=== PATIENT | female | born 1975 | race Caucasian/White ===

== ENCOUNTER → 2017-07-26 06:58 | Outpatient (CLI) | payer BC, SELFPAY ==
--- NOTE | 2017-07-26 07:06 | BI_ITS ---
MAMMOGRAPHY - BILATERAL SCREENING REASON FOR EXAM: Female, 41 years old. Routine annual screening examination. PERTINENT HISTORY: Non-contributory. TECHNIQUE: Digital bilateral breast fletcher (3D mammographic acquisition) in the CC and MLO projections. 2-D mediolateral oblique (MLO) and craniocaudad (CC) views of both breasts were obtained. CAD: Full Field Digital Mammography with Computer Added Detection was performed. COMPARISON: Comparison is made with prior study dated July 01, 2016 and May 06, 2015. FINDINGS: Breast Composition: There are scattered areas of fibroglandular density. There are no dominant masses or suspicious calcifications. No other significant abnormalities are identified. There has been no significant change since the prior study. BI/SCREENING MAMM (CAD), BILAT IMPRESSION: Stable bilateral screening mammogram. Yearly follow-up mammogram recommended. (A) ASSESSMENT CATEGORY: BIRADS Category 1: Negative. A letter regarding these results will be sent to the patient by the facility within 30 days. Approximately 10% of breast cancers are not detected by mammography. A normal mammogram should not delay biopsy of a clinically suspicious abnormality. [id number] Electronically Signed: Rubio Shaffer MD at 9:48 EDT Tel [phone], Service support ,
== END ==
PROVIDERS: Family Provider Family Medicine; PCP Family Medicine; Visit Provider Obstetrics & Gynecology
DX: Z12.31 Encounter for screening mammogram for malignant neoplasm of breast (principal)
CPT/HCPCS: 77063; 77067

== ENCOUNTER → 2017-10-06 13:41 | Outpatient (CLI) | payer BC, SELFPAY ==
[2017-10-12 11:49] LABS: HPV Reflexed? NOT INDICATED
== END ==
PROVIDERS: Visit Provider Obstetrics & Gynecology
DX: Z12.4 Encounter for screening for malignant neoplasm of cervix (principal)
CPT/HCPCS: 88175; G0145

== ENCOUNTER → 2018-11-29 14:58 | Outpatient (CLI) | payer BC, SELFPAY ==
[2018-12-26 15:38] LABS: HPV Reflexed? NOT INDICATED
== END ==
PROVIDERS: Visit Provider Advanced Practice Midwife
DX: Z12.4 Encounter for screening for malignant neoplasm of cervix (principal)
CPT/HCPCS: 87624; 88175; G0145

== ENCOUNTER → 2018-12-23 09:14 | Outpatient (CLI) | payer BC, SELFPAY ==
--- NOTE | 2018-12-23 09:17 | BI_ITS ---
MAMMOGRAPHY - BILATERAL SCREENING 3-D TOMOSYNTHESIS REASON FOR EXAM: Female, 42 years old. Screening PERTINENT HISTORY: No significant family history. BILATERAL DIGITAL MAMMOGRAM WITH TOMOSYNTHESIS: Mediolateraloblique and craniocaudal views demonstrate no evidence of dominant parenchymal masses. No cluster of microcalcification or architectural distortion is seen. No evidence of skin thickening. No significant change since 07/26/2017 Breast Density: There are scattered areas of fibroglandular density. CAD was used to assist in final assessment. IMPRESSION: NORMAL MAMMOGRAM BILATERALLY. FINAL ASSESSMENT: BIRAD 1 (NEGATIVE) YEARLY MAMMOGRAM RECOMMENDED Approximately 10% of breast cancers are not detected by mammography. A normal mammogram should not delay biopsy of a clinically suspicious abnormality. Electronically Signed: Vladislav Mansfield, at 7:40 EDT Tel , Service support , BI/SCREEN MAMM (CAD) W/MCKINLEY CHO
== END ==
PROVIDERS: Family Provider Family Medicine; PCP Family Medicine; Referring Provider Obstetrics & Gynecology; Visit Provider Obstetrics & Gynecology
DX: Z12.31 Encounter for screening mammogram for malignant neoplasm of breast (principal)
CPT/HCPCS: 77063; 77067

== ENCOUNTER → 2020-02-26 | Outpatient (CLI) | payer BC, SELFPAY ==
[2020-03-01 12:58] LABS: HPV Reflexed? NOT INDICATED
== END | disposition home or self-care (01) ==
LOC: LABSPEC 11:24
PROVIDERS: PCP Family Medicine; Visit Provider Student in an Organized Health Care Education/Training Program
DX: Z12.4 Encounter for screening for malignant neoplasm of cervix (principal)
CPT/HCPCS: 88175; G0145

== ENCOUNTER → 2020-03-20 06:56 | Outpatient (CLI) | payer BC, SELFPAY ==
--- NOTE | 2020-03-20 07:06 | BI_ITS ---
MAMMOGRAPHY - BILATERAL SCREENING REASON FOR EXAM: Female, 44 years old. Routine annual screening examination. PERTINENT HISTORY: Non-contributory. TECHNIQUE: Digital bilateral breast mckinley (3D mammographic acquisition) in the CC and MLO projections. 2-D mediolateral oblique (MLO) and craniocaudad (CC) views of both breasts were obtained. CAD: Full Field Digital Mammography with Computer Added Detection was performed. COMPARISON: Comparison is made with prior examination of 12/23/2018 and 07/26/2017. FINDINGS: Breast Composition: There are scattered areas of fibroglandular density. There are no dominant masses or suspicious calcifications. Stable small benign appearing bilateral axillary lymph nodes. No other significant abnormalities are identified. There has been no significant change since the prior study. BI/SCREEN MAMM (CAD) W/MCKINLEY BILAT IMPRESSION: Stable bilateral screening mammogram. Yearly follow-up mammogram recommended. (A) ASSESSMENT CATEGORY: BIRADS Category 2: Benign. A letter regarding these results will be sent to the patient by the facility within 30 days. Approximately 10% of breast cancers are not detected by mammography. A normal mammogram should not delay biopsy of a clinically suspicious abnormality. [id number] Electronically Signed: Rubio Shaffer, at 10:13 EST , Service support ,
== END ==
PROVIDERS: PCP Family Medicine; Referring Provider Student in an Organized Health Care Education/Training Program; Visit Provider Student in an Organized Health Care Education/Training Program
DX: Z12.31 Encounter for screening mammogram for malignant neoplasm of breast (principal)
CPT/HCPCS: 77063; 77067

== ENCOUNTER → 2020-04-08 | Outpatient (CLI) | payer BC, SELFPAY ==
--- NOTE | 2020-04-08 | CER_PTH ---
PATIENT: JOHNSON RODRIGUEZ [id number] AGE/SX: 44/F ROOM: RE04/08/[address]: Dr. Kandi Lakhani DO : 1975 BED: DIS: 04/08/2020 SPEC #: [id number] RECD: 04/08/20 16:10 STATUS: KOKI BRUCE #: [id number] MARGARETTE: 04/08/20 00:[address]: Kandi Lakhani DEPT: SURGICAL PATHOLOGY RECD BY: Pete Elizabeth ENTERED: 04/09/20 10:53 SP TYPE: CERV OTHR DR: Dr. Juana Dubon DO Tissues: A - Uterine cervix, NOS B - Endocervical Procedures: Surgery Specimen Level IV HEADER OPERATION: Colposcopy PRE-OP DIAGNOSIS: LSIL TISSUE SUBMITTED: A - Cervical biopsy 6 o'clock, B - ECC MICROSCOPIC DIAGNOSIS A. Cervix, 6 o'clock, biopsy: Negative for dysplasia. Mild acute and chronic inflammation. B. ECC: Fragments of benign endocervical epithelium, blood and mucous, negative for dysplasia. CULLEN:renan 04/10/2020 COMMENT Correlation with clinical, colposcopy findings and appropriate follow up are necessary. MICROSCOPIC DESCRIPTION Slides are reviewed. GROSS DESCRIPTION A - Received in fixative is one container labeled with the patient's name and designated 6 o'clock cervix. The specimen consists of one irregular fragment of light morel soft tissue that measures 0.3 x 0.3 x 0.1 cm. The specimen is totally submitted in one cassette. B - Received in fixative is one container labeled with the patient's name and designated endocervix. The specimen consists of light morel mucoid material aggregating to 2 x 1 x <0.1 cm. The specimen is totally submitted in one cassette. / AM:renan 04/09/20 TC:3 CPT: 67489 x2
== END | disposition home or self-care (01) ==
LOC: LABSPEC 15:50
PROVIDERS: PCP Family Medicine; Visit Provider Student in an Organized Health Care Education/Training Program
DX: N72 Inflammatory disease of cervix uteri (principal)
CPT/HCPCS: 88305

== ENCOUNTER 2021-04-27 07:26 | Outpatient (CLI) | payer BC, SELFPAY ==
--- NOTE | 2021-04-27 07:28 | BI_ITS ---
MAMMOGRAPHY - BILATERAL SCREENING REASON FOR EXAM: Female, 45 years old. Routine annual screening examination. PERTINENT HISTORY: Non-contributory. TECHNIQUE: Digital bilateral breast mckinley (3D mammographic acquisition) in the CC and MLO projections. 2-D mediolateral oblique (MLO) and craniocaudad (CC) views of both breasts were obtained. CAD: Full Field Digital Mammography with Computer Added Detection was performed. COMPARISON: Comparison is made with prior study dated 03/20/2020 and 12/23/2018. FINDINGS: Breast Composition: There are scattered areas of fibroglandular density. There are no dominant masses or suspicious calcifications. Stable small benign-appearing bilateral axillary lymph nodes. No other significant abnormalities are identified. There has been no significant change since the prior study. BI/SCRN MAMM (CAD)W/MCKINLEY BILAT IMPRESSION: Stable bilateral screening mammogram. Yearly follow-up mammogram recommended. (A) ASSESSMENT CATEGORY: BIRADS Category 2: Benign. A letter regarding these results will be sent to the patient by the facility within 30 days. Approximately 10% of breast cancers are not detected by mammography. A normal mammogram should not delay biopsy of a clinically suspicious abnormality. [id number] Electronically Signed: Rubio Shaffer MD at 11:22 EST ,
== END 2021-04-27 23:59 | disposition home or self-care (01) ==
LOC: OPBI 07:26
PROVIDERS: PCP Family Medicine; Referring Provider Student in an Organized Health Care Education/Training Program; Visit Provider Student in an Organized Health Care Education/Training Program
DX: Z12.31 Encounter for screening mammogram for malignant neoplasm of breast (principal)
CPT/HCPCS: 77063; 77067

== ENCOUNTER 2021-06-02 12:07 | Outpatient (CLI) | payer BC, SELFPAY ==
[2021-06-09 13:59] LABS: HPV APTIMA, High Risk Negative (Negative)
== END 2021-06-02 23:59 | disposition home or self-care (01) ==
LOC: LABSPEC 12:09
PROVIDERS: PCP Family Medicine; Visit Provider Student in an Organized Health Care Education/Training Program
DX: Z12.4 Encounter for screening for malignant neoplasm of cervix (principal)
CPT/HCPCS: 87624; 88175; G0145

== ENCOUNTER → 2022-06-29 | Outpatient (CLI) | payer BC, SELFPAY ==
[2022-07-07 10:08] LABS: HPV APTIMA, High Risk Negative (Negative)
== END | disposition home or self-care (01) ==
LOC: LABSPEC 12:05
PROVIDERS: PCP Family Medicine; Visit Provider Student in an Organized Health Care Education/Training Program
DX: Z12.4 Encounter for screening for malignant neoplasm of cervix (principal)
CPT/HCPCS: 87624; 88175; G0145

== ENCOUNTER → 2022-07-08 | Outpatient (CLI) | payer BC, SELFPAY ==
--- NOTE | 2022-07-08 07:56 | BI_ITS ---
MAMMOGRAPHY - BILATERAL SCREENING REASON FOR EXAM: Female, 46 years old. Routine annual screening examination. PERTINENT HISTORY: Non-contributory. TECHNIQUE: Digital bilateral breast mckinley (3D mammographic acquisition) in the CC and MLO projections. 2-D mediolateral oblique (MLO) and craniocaudad (CC) views of both breasts were obtained. CAD: Full Field Digital Mammography with Computer Added Detection was performed. COMPARISON: Comparison is made with prior examination from February 24, 2022 and March 20, 2020. FINDINGS: Breast Composition: There are scattered areas of fibroglandular density. There are no dominant masses or suspicious calcifications. Stable small benign-appearing bilateral axillary lymph nodes. No other significant abnormalities are identified. There has been no significant change since the prior study. BI/SCRN MAMM (CAD)W/MCKINLEY BILAT IMPRESSION: Stable bilateral screening mammogram. Yearly follow-up mammogram recommended. (A) ASSESSMENT CATEGORY: BIRADS Category 2: Benign. A letter regarding these results will be sent to the patient by the facility within 30 days. Approximately 10% of breast cancers are not detected by mammography. A normal mammogram should not delay biopsy of a clinically suspicious abnormality. [id number] Electronically Signed: Rubio Shaffer MD at 11:07 EDT ,
== END | disposition home or self-care (01) ==
LOC: OPBI 07:55
PROVIDERS: PCP Family Medicine; Referring Provider Student in an Organized Health Care Education/Training Program; Visit Provider Student in an Organized Health Care Education/Training Program
DX: Z12.31 Encounter for screening mammogram for malignant neoplasm of breast (principal)
CPT/HCPCS: 77063; 77067

== ENCOUNTER 2023-01-06 06:39 | Day surgery (SDC) | payer BC, SELFPAY ==
[2023-01-06 07:16] VITALS: BP 106/71; PULSE 98; RESP 18; TEMP 35.8; O2SAT 98; BMI 33.3
[2023-01-06] MEDS: Lactated Ringers 1,000 ML 15 ML IV (07:21)
--- NOTE | 2023-01-06 07:23 | HP.PCM_ITS ---
HPI - General General Date of Admission: 01/06/23 Date of Service: 01/06/23 Chief Complaint: Screening colonoscopy HPI Narrative JOHNSON RODRIGUEZ, is a 47 F who presents today for screening colonoscopy. She has never had a colonoscopy in the past. She is not having abdominal pain. Does not have any nausea, vomiting or diarrhea. She does not have any chest pain or shortness of breath. Overall she is in very good health. [facility] Medical History (Updated 01/03/23 @ 17:30 by Rhona Huggins) Alcohol use Anxiety Depression High cholesterol History of broken nose Migraine headache Non-smoker Restless legs Seasonal allergies Wears contact lenses Home Medications escitalopram oxalate 5 mg tablet (Lexapro) 20 mg PO DAILY 03/09/22 [History Last Taken Unknown] cetirizine 10 mg tablet (Zyrtec) 10 mg PO DAILY 10/28/22 [History Last Taken Unknown] collagen 500 mg PO DAILY 01/03/23 [History Last Taken Unknown] Allergy/AdvReac Type Severity Reaction Status Date / Time amoxicillin [From Augmentin] Allergy Hives Verified 01/03/23 17:19 clavulanic acid Allergy Hives Verified 01/03/23 17:19 [From Augmentin] Social History (Updated 10/28/22 @ 14:48 by Latonia Ledesma) household members: spouse current occupational status: employed Smoking Status: Never smoker ROS Review of Systems ROS Unobtainable: other Constitutional Constitutional: Denies fatigue, fever(s), poor appetite, weight gain or weight loss ENT HEENT: Denies mouth lesions Cardiovascular Cardiovascular: Denies abdominal bloating, abdominal edema or abdominal pain Respiratory/Chest Respiratory/Chest: Denies change in mental status, change in phlegm color, chest congestion or chest tightness Gastrointestinal Gastrointestinal: Denies belching, bloating, change in bowel habits, change in stool character, chewing difficulty, coffee ground emesis, constipation, c ramping, diarrhea, dyspepsia, dysphagia, early satiety, excessive flatus, fecal incontinence, heartburn, hematemesis, hematochezia, hemorrhoids, loose stools, melena, nausea, odynophagia, rectal bleeding, tenesmus, vomiting or weight changes Genitourinary Genitourinary: Denies abdominal discomfort, burning urination or itching Musculoskeletal Musculoskeletal: Reports as per HPI; Denies muscle weakness or myalgias Integumentary Integumentary: Denies jaundice Neurologic Neurologic: Denies lack of coordination or weakness Psychiatric Psychiatric: Denies confusion, depression, memory loss, mood swings, paranoia or suicidal ideation Endocrine Endocrinology: Denies systems reviewed and no addt'l complaints, except as documented Hematologic/Lymphatic Hematologic/Lymphatic: Denies anemia, easy bleeding, easy bruising or lymphadenopathy Allergic/Immunologic Allergic/Immunologic: Denies systems reviewed and no addt'l complaints, except as documented Vital Signs Vital Signs Vital Signs: 01/06/23 07:16 01/06/23 07:16 Temperature 96.4 F L Temperature Source Temporal Pulse Rate 98 Respiratory Rate 18 Respiratory Pattern Normal Blood Pressure 106/71 Blood Pressure Mean 82 Blood Pressure Source Monitor Blood Pressure Position Semi-Fowlers Blood Pressure Location Right Arm Pulse Ox 98 Oxygen Delivery Method Room Air Weight Weight: 182 lb Body Mass Index (BMI) 33.3 Physical Exam Const alert General Appearance: cooperative Orientation / Consciousness: oriented to person HEENT hearing grossly normal bilaterally Head and Scalp: normal to inspection Face and Sinus: face symmetric Nose: external nose normal Mouth: oral and palatal mucosa normal Eyes conjunctivae normal General Eye: normal appearance of both eyes Neck full ROM General: normal visual inspection Lymph Lymphatic: no lymphadenopathy noted Chest inspection of chest normal and palpation of chest normal Chest: symmetrical chest wall rise Resp normal respiratory effort Effort and Inspection: able to speak in complete sentences Cardio regular rate GI non-distended Percussion: normal to percussion Rectal Exam: deferred Neuro Speech: speech normal Gait (Neuro): normal gait Assessment & Plan Assessment/Plan (1) Encounter for screening for malignant neoplasm of colon: PLAN: She was explained alternatives, risk, benefits include not withstanding bleeding, infection, sepsis, perforation, need for emergent surgery . She will have an ASA of 2.
[2023-01-06 07:27] LABS: Internal QC Validated? YES +Cl - CLEAR BKGD; Pregnancy, Serum, hCG Quali. NEGATIVE Negative; Record Kit Lot#, Serum Preg. HCG0000667200
--- NOTE | 2023-01-06 07:45 | COLBX_PTH ---
PATIENT: JOHNSON RODRIGUEZ LOC: [facility] U#:[id number] AGE/SX: 47/F ROOM: RE01/06/[address]: Dr. Narciso Garcia DO : 1975 BED: DIS: 01/06/2023 SPEC #: [id number] RECD: 01/06/23 09:44 STATUS: KOKI RECalvin #: [id number] MARGARETTE: 01/06/23 07:[address]: Narciso Garcia DEPT: SURGICAL PATHOLOGY RECD BY: Genoveva Wynne ENTERED: 01/06/23 11:49 SP TYPE: COLON BX OTHR DR: Dr. Juana Dubon DO Tissues: Sigmoid colon biopsy Procedures: Surgery Specimen Level IV HEADER OPERATION: Colonoscopy wit biopsy - open access PRE-OP DIAGNOSIS: Screening TISSUE SUBMITTED: Sigmoid polyp biopsy MICROSCOPIC DIAGNOSIS Sigmoid polyp, biopsy: Hyperplastic polyp. CULLEN:renan 01/07/2023 MICROSCOPIC DESCRIPTION Slides are reviewed. GROSS DESCRIPTION Received in fixative is one container labeled with the patient's name and designated sigmoid polyp biopsy. The specimen consists of one irregular fragment of light morel soft tissue that measures 0.3 x 0.2 x 0.1 cm. The specimen is totally submitted in one cassette. / AM:renan 01/06/2023 TC:1 CPT: 84661
[2023-01-06 08:25] VITALS: BP 106/71; BP 142/117; PULSE 86; RESP 16; TEMP 36.2; O2SAT 97
--- NOTE | 2023-01-06 08:26 | OP.COLON_ITS ---
Patient Name: Ana Carrasco Procedure Date: 01/06/2023 8:00 AM Date of : 1975 Age: 47 Procedure: Colonoscopy Indications: Screening for colorectal malignant neoplasm Providers: Narciso Garcia DO Referring MD: Juana Joshua Do Medicines: Monitored Anesthesia Care Patient Profile: This is a 47 year old female. Refer to note in patient chart for documentation of history and physical. Last Colonoscopy: none. The patient's first colonoscopy is today. Complications: No immediate complications. Procedure: Pre-Anesthesia Assessment: - Prior to the procedure, a History and Physical was performed, and patient medications and allergies were reviewed. The patient is competent. The risks and benefits of the procedure and the sedation options and risks were discussed with the patient. All questions were answered and informed consent was obtained. Patient identification and proposed procedure were verified by the physician in the pre-procedure area. Mental Status Examination: alert and oriented. Airway Examination: normal oropharyngeal airway and neck mobility. Respiratory Examination: clear to auscultation. CV Examination: normal. Prophylactic Antibiotics: The patient does not require prophylactic antibiotics. Prior Anticoagulants: The patient has taken no anticoagulant or antiplatelet agents. ASA Grade Assessment: II - A patient with mild systemic disease. After reviewing the risks and benefits, the patient was deemed in satisfactory condition to undergo the procedure. The anesthesia plan was to use monitored anesthesia care (MAC). Immediately prior to administration of medications, the patient was re-assessed for adequacy to receive sedatives. The heart rate, respiratory rate, oxygen saturations, blood pressure, adequacy of pulmonary ventilation, and response to care were monitored throughout the procedure. The physical status of the patient was re-assessed after the procedure. After I obtained informed consent, the scope was passed under direct vision. Throughout the procedure, the patient's blood pressure, pulse, and oxygen saturations were monitored continuously. The Colonoscope was introduced through the anus and advanced to the cecum, identified by appendiceal orifice and ileocecal valve. The colonoscopy was performed without difficulty. The patient tolerated the procedure well. The quality of the bowel preparation was good. The ileocecal valve, appendiceal orifice, and rectum were photographed. Scope In: 8:09:02 AM Scope Withdrawal Time 0 hours 7 minutes 37 seconds Scope Out: 8:19:37 AM Total Procedure Duration Time 0 hours 10 minutes 35 seconds Findings: The perianal and digital rectal examinations were normal. A few small-mouthed diverticula were found in the sigmoid colon. A 5 mm polyp was found in the sigmoid colon. The polyp was sessile. The polyp was removed with a cold snare. Resection and retrieval were complete. Verification of patient identification for the specimen was done. Estimated blood loss was minimal. Impression: - Diverticulosis in the sigmoid colon. - One 5 mm polyp in the sigmoid colon, removed with a cold snare. Resected and retrieved. Recommendation: - Repeat colonoscopy in 5 years for surveillance. - Continue present medications. Procedure Code(s): --- Professional --- 32647, Colonoscopy, flexible; with removal of tumor(s), polyp(s), or other lesion(s) by snare technique CPT copyright 2021 [employer]. All rights reserved. The codes documented in this report are preliminary and upon flasher adjuster review may be revised to meet current compliance requirements. Narciso Garcia DO 01/06/2023 8:25:53 AM This report has been signed electronically. Number of Addenda: 0 Note Initiated On: 01/06/2023 8:00 AM
--- NOTE | 2023-01-06 08:26 | OP.CCLET_ITS ---
01/06/2023 Juana Joshua Do Re : Colonoscopy procedure for Ana Carrasco [place] This procedure was performed on December. My impressions and recommendations are as follows: Impressions : - Diverticulosis in the sigmoid colon. - One 5 mm polyp in the sigmoid colon, removed with a cold snare. Resected and retrieved. Recommendations : - Repeat colonoscopy in 5 years for surveillance. - Continue present medications. My findings are described in the full procedure note, which is enclosed. If I can be of further assistance, please feel free to contact me at . Sincerely, Narciso Garcia, 01/06/2023 8:25:53 AM This report has been signed electronically.
[2023-01-06 08:30] VITALS: BP 100/65; BP 106/71; PULSE 81; RESP 18; O2SAT 97
[2023-01-06 08:35] VITALS: BP 106/71; BP 94/66; PULSE 73; RESP 18; O2SAT 98
[2023-01-06 08:42] VITALS: BP 101/60; BP 106/71; PULSE 74; RESP 16; TEMP 36.9; O2SAT 98
[2023-01-06 09:03] VITALS: BP 106/71
== END 2023-01-06 09:12 | disposition home or self-care (01) ==
LOC: EN 06:40 → AC 06:40
PROVIDERS: Anesthesiology; PCP Family Medicine; Referring Provider Family Medicine; Visit Provider Internal Medicine Gastroenterology
PROC: 0DJD8ZZ Inspection of Lower Intestinal Tract, Via Natural or Artificial Opening Endoscopic (ICD-10-PCS; CPT 45378; principal; 2023-01-06 07:40)
DX: Z12.11 Encounter for screening for malignant neoplasm of colon (principal); K57.30 Diverticulosis of large intestine without perforation or abscess without bleeding; K63.5 Polyp of colon; E78.00 Pure hypercholesterolemia, unspecified
CPT/HCPCS: 45385; 84703; 88305; J7120

== ENCOUNTER → 2023-11-28 | Outpatient (CLI) | payer BC, SELFPAY ==
--- NOTE | 2023-11-28 08:01 | BI_ITS ---
MAMMOGRAPHY - BILATERAL SCREENING 3-D TOMOSYNTHESIS REASON FOR EXAM: Female, 47 years old. screening mammogram PERTINENT HISTORY: No significant family history. TECHNIQUE: 2-D mammograms and 3-D Tomosynthesis of the breast (s) were performed. CAD was performed. COMPARISON: 07/08/2022 FINDINGS: The breast composition is composed of scattered fibroglandular density. Scattered benign calcifications are seen. No dense spiculated masses or suspicious microcalcifications are identified. No architectural distortion is identified. There is no skin thickening or retraction. There has been no significant change since the prior study. BI/SCRN MAMM (CAD)W/MCKINLEY BILAT IMPRESSION: No mammographic signs of malignancy. Routine yearly mammograms recommended. ASSESSMENT CATEGORY: BIRADS Category 1: Negative. A letter regarding these results will be sent to the patient by the facility within 30 days. FOLLOW UP RECOMMENDATION: Yearly follow up mammogram recommended. (A) Approximately 10% of breast cancers are not detected by mammography. A normal mammogram should not delay biopsy of a clinically suspicious abnormality. Electronically Signed: Gamal Dixon MD at 14:56 EDT ,
== END | disposition home or self-care (01) ==
LOC: OPBI 08:01
PROVIDERS: PCP Family Medicine; Referring Provider Obstetrics & Gynecology; Visit Provider Obstetrics & Gynecology
DX: Z12.31 Encounter for screening mammogram for malignant neoplasm of breast (principal)
CPT/HCPCS: 77063; 77067

== ENCOUNTER → 2024-11-26 | Outpatient (CLI) | payer BC, SELFPAY ==
--- NOTE | 2024-11-26 16:25 | US_ITS ---
PROCEDURE: PELVIC W/ TRANSVAGINAL REASON FOR EXAM: VAGINAL BLEEDING TECHNIQUE: Procedure Code: [id number] Modality: US Procedure: PELVIC W/ TRANSVAGINAL COMPARISON: None FINDINGS: LMP: November 11, 2024. Measurements: Uterus: 8.4 cm x 5.4 cm x 4.5 cm with a volume of 105.1 mL Endometrial Thickness: 5 mm. It is fluid-filled. Questionable polyp within the endometrium measuring 7 mm x 8 mm x 6 mm. Right Ovary: 3.5 cm x 2.4 cm x 2.1 cm with a volume of 8.53 mL. Left Ovary: 2.2 cm x 2.1 cm x 2 cm with a volume of 6.27 mL. TRANSABDOMINAL: Uterus: There is an 8 mm x 8 mm x 4 mm fundal fibroid. Endometrium: Fluid-filled. Findings suggestive of a 7 mm x 8 mm x 6 mm polyp. Right ovary: A dominant follicle is seen within the right ovary measuring 1.5 cm x 1.6 cm 1.5 cm. Left ovary: Normal size and echotexture. Other: No large pelvic mass identified. Transvaginal sonography was performed as transabdominal imaging did not explain the patient's presenting symptoms. TRANSVAGINAL: Uterus: Anteverted. Small fundal fibroid. Endometrium: Fluid-filled endometrium measuring 5 mm. Findings suggestive of a 7 mm x 8 mm x 6 mm polyp. Right ovary: Small follicle. Left ovary: Normal size and echotexture. Other adnexal findings: None. Cul-de-sac: No free intraperitoneal fluid identified. Tenderness: No tenderness US/Pelvic w/ Transvaginal IMPRESSION: Small uterine fibroid. Findings suggestive of a 7 mm x 8 mm x 6 mm endometrial polyp. Reading Location: [id number]
== END | disposition home or self-care (01) ==
LOC: US 16:22
PROVIDERS: PCP Family Medicine; Referring Provider Obstetrics & Gynecology; Visit Provider Obstetrics & Gynecology
DX: N93.9 Abnormal uterine and vaginal bleeding, unspecified (principal)
CPT/HCPCS: 76830; 76856

== ENCOUNTER → 2024-12-05 | Outpatient (CLI) | payer BC, SELFPAY ==
[2024-12-05 09:31] LABS: Hematocrit 37.7 % (37-47); Hemoglobin 12.3 g/dL (12.0-15.0); Immature Granulocytes Count 0.030 X10^3/uL (0.0-0.0); Mean Corp Hgb Conc 32.6 g/dL (32-36); Mean Corpuscular Volume 89.1 fL (81-99); Mean Platelet Vol. 8.8 fl (6.2-12.0); NRBC Flagged by Analyzer 0 % (0-5); Platelet Count 345 K/mm3 (150-450); RBC Distribution Width CV 13.3 % (11.6-14.6); RBC Distribution Width SD 43.7 fl (35.1-43.9); Red Blood Count 4.23 M/mm3 (4.2-5.4); White Blood Count 8.4 K/mm3 (4.4-11.0)
--- OUTSIDE RECORDS SUMMARY | 2024-12-05 09:39 | XMS RPT_ITS | CCD ---
Author Organization [facility] CliniSyma Care Team Providers Care Family Preservation Officer Name Role Phone BLOSSOM MONCADA DO Primary Care Physician Dr. Bolssom Moncada Primary Care Provider Dr. Blossom Moncada Referring Provider [phone] GIL Nguyen Attending Provider Dr. Blossom Moncada Primary Care Provider Latonia Ledesma Attending Provider Unavailable Dr. Blossom Moncada Referring Provider [phone] Dr. Narciso Garcia Attending Provider Dr. Narciso Garcia Other Provider [phone] BLOSSOM MONCADA DO Attending Unavailable BLOSSOM MONCADA DO Primary Care Unavailable BLOSSOM MONCADA DO Attending Unavailable BLOSSOM MONCADA DO Primary Care Unavailable BLOSSOM MONCADA DO Attending Unavailable BLOSSOM MONCADA DO Primary Care Unavailable BLOSSOM MONCADA DO Attending Unavailable BLOSSOM MONCADA DO Primary Care Unavailable BLOSSOM MONCADA DO Attending Unavailable BLOSSOM MONCADA DO Primary Care Unavailable BLOSSOM MONCADA DO Primary Care Physician [phone] Blossom Moncada DO Primary Care Provider BLOSSOM MONCADA Referring UnavailBLOSSOM Abarca Primary Care UnavailDr. Blossom Abarca DO Primary Care Provider Shelly HERRERA, Dr. North Attending Provider Dr. Mary Anne Bravo MD Referring Provider Mary Anne Bravo Attending Unavailable Coral, Blossom Primary Care Unavailable Coral, Blossom Referring Unavailable Mary Anne Bravo Attending Unavailable Mary Anne Bravo Referring Unavailable Coral, Blossom Primary Care Unavailable CORAL DO, BLOSSOM Primary Care Unavailable CORAL DO, BLOSSOM Attending Unavailable CORAL DO, BLOSSOM Attending Unavailable CORAL DO, BLOSSOM Primary Care Unavailable CORAL DO, BLOSSOM Attending Unavailable CORAL DO, BLOSSOM Primary Care Unavailable Allergies Allergy Classification Reported Allergen(s) Allergy Type Date of Onset Reaction(s) Facility (4 sources) Amoxicillin / Clavulanate; Translations: [amoxicillin-cl avulanate] Drug Allergy Swelling (morphologic abnormality), Itching (finding), Weal (disorder) [facility] [place] (4 sources) Amoxicillin Drug Allergy 2 Other, [facility] (4 sources) Clavulanate Drug Allergy 2 Other, [facility] (1 source) ALLERGIES NOT ON FILE; Translations: [ALLERGIES NOT ON FILE] Propensity to adverse reactions (disorder) [facility] 2 Repository (1 source) Amoxicillin Drug Allergy 4 [facility] Repository (1 source) Clavulanate Drug Allergy 4 [facility] Repository Medications Current Medications Medication Drug Class(es) Dates Sig (Normalized) Sig (Original) ARIPiprazole 2 mg oral tablet (1 source) Atypical Antipsychotic Start: 05-25-2024 Abilify 2 mg oral tablet Dose : 2 mg = 1 tab(s), Oral, qDay, # 90 tab(s), 1 Refill(s), [facility]: [id number], Mood swings Recurrent major depression, 162, cm, 05/25/24 8:12:00 EST, Height, kg, 05/25/24 8:06:00 EST, Dosing Weight Start Date: 05/25/24 Status: Ordered Medication Dispense Status: Completed Quantity: 90.0 Unit: tab(s) Total Allowed Fills: 2 Fills Dispensed: 0 Indications: Major depressive disorder, recurrent, unspecified; Emotional lability; Ascorbic Acid (1 source) Vitamin C Start: 04-16-2022 Vitamin C qDay, 0 Refill(s) Start Date: 04/16/22 Status: Ordered Calcium, Magnesium and Zinc oral tablet (1 source) Start: 03-28-2024 take 1 tablet by mouth once daily Calcium, Magnesium and Zinc oral tablet tab(s), Oral, qDay, 0 Refill(s) Start Date: 03/28/24 Status: Ordered Medication Dispense Status: Completed Total Allowed Fills: 1 Fills Dispensed: 0 cetirizine hydrochloride 10 mg oral tablet (4 sources) Histamine-1 Receptor Antagonist Start: 08-27-2022 cetirizine 10 mg oral tablet Dose : 10 mg = 1 tab(s), Oral, qDay, # 30 tab(s), 0 Refill(s) Start Date: 08/27/22 Status: Ordered Medication Dispense Status: Completed Quantity: 30.0 Unit: tab(s) Total Allowed Fills: 1 Fills Dispensed: 0 escitalopram 20 mg oral tablet (8 sources) Serotonin Reuptake Inhibitor Start: 05-25-2024 Lexapro 20 mg oral tablet Dose : 20 mg = 1 tab(s), Oral, qDay, # 90 tab(s), 3 Refill(s), [facility]acy: [facility] #[id number], Recurrent major depression Anxiety, 162, cm, 05/25/24 8:12:00 EST, Height, kg, 05/25/24 8:06:00 EST, Dosing Weight Start Date: 05/25/24 Status: Ordered Medication Dispense Status: Completed Quantity: 90.0 Unit: tab(s) Total Allowed Fills: 4 Fills Dispensed: 0 Indications: Major depressive disorder, recurrent, unspecified; Anxiety disorder, unspecified; Start: 02-23-2023 Lexapro 20 mg oral tablet Dose : 20 mg = 1 tab(s), Oral, qDay, # 90 tab(s), 3 Refill(s), Pharmacy: [facility] #[id number], Recurrent major depression Anxiety, 161.5, cm, 02/23/23 8:11:00 EST, Height, kg, 02/23/23 8:11:00 EST, Dosing Weight Start Date: 02/23/23 Status: Ordered Start: 04-16-2022 Lexapro 20 mg oral tablet Dose : 20 mg = 1 tab(s), Oral, qDay, # 90 tab(s), 3 Refill(s), Pharmacy: [facility] #[id number], Anxiety Depression, 161.5, cm, 04/16/22 8:24:00 EST, Height, kg, 04/16/22 8:24:00 EST, Dosing Weight Start Date: 04/16/22 Status: Ordered Start: 03-09-2022 take [address] [facility] once daily Escitalopram Oxalate (Lexapro) 5 mg tablet Active 20 mg PO DAILY March 09, 2022 1:00am Start: 03-09-2022 [facility] Escitalopram Oxalate (Lexapro) 5 mg tablet Active 5 MG PO DAILY March 09, 2022 1:00am Start: 09-09-2021 Lexapro 20 mg oral tablet Dose : 20 mg = 1 tab(s), Oral, qDay, # 30 tab(s), 5 Refill(s), [id number] [facility], Anxiety Depression, 160, cm, 09/09/21 9:04:00 EDT, Height, kg, 09/09/21 9:04:00 EDT, Dosing Weight Start Date: 09/09/21 Status: Ordered ibuprofen 200 mg oral tablet (4 sources) Nonsteroidal Anti-inflammatory Drug Start: 09-09-2021 ibuprofen 200 mg oral tablet Dose : 400 mg = 2 tab(s), Oral, q6hr, PRN pain or fever, 0 Refill(s) Start Date: 09/09/21 Status: Ordered Medication Dispense Status: Completed Total Allowed Fills: 1 Fills Dispensed: 0 Lactobacillus Combination No.4 (Probiotic) 3 billion cell capsule (1 source) Start: 11-14-2023 take 3 capsules by mouth once daily Lactobacillus Combination No.4 (Probiotic) 3 billion cell capsule Active 3000 NMA PO DAILY November 14, 2023 12:00am administer with a meal loratadine 10 mg oral tablet (2 sources) Start: 10-14-2020 take 1 mg by mouth once daily loratadine 10 mg oral tablet mg = tab(s), Oral, qDay, 0 Refill(s) Start Date: 10/14/20 Status: Ordered Mecobalamin (Vitamin B12) 1,000 mcg lozenge (1 source) Start: 11-14-2023 take 1000 ug by mouth once daily Mecobalamin (Vitamin B12) 1,000 mcg lozenge Active 1000 ug PO DAILY November 14, 2023 12:00am allow to dissolve in mouth OR may chew lightly before swallowing Misc Medication (2 sources) Start: 03-28-2024 Mis Medication Collogen 500mg, 0 Refill(s), 85.6 Start Date: 03/28/24 Status: Ordered Medication Dispense Status: Completed Total Allowed Fills: 1 Fills Dispensed: 0 Start: 02-24-2024 [facility] [facility] digestive vitamin to help w/ gluten and dairy digestion., 0 Refill(s), 83.6 Start Date: 02/24/24 Status: Ordered Medication Dispense Status: Completed Total Allowed Fills: 1 Fills Dispensed: 0 Multivitamin preparation (1 source) Start: 02-24-2024 take 1 tablet by mouth once daily Multivitamin Dose = 1 tab(s), Oral, Daily, Sil pack: Fish oil, calcium plus, cranberry, 0 Refill(s) Start Date: 02/24/24 Status: Ordered Medication Dispense Status: Completed Total Allowed Fills: 1 Fills Dispensed: 0 Probiotic (4 sources) Start: 09-09-2023 Probiotic 0 Re fill(s) Start Date: 09/09/23 Status: Ordered Medication Dispense Status: Completed Total Allowed Fills: 1 Fills Dispensed: 0 Start: 09-09-2023 Probiotic 0 Re fill(s) Start Date: 09/09/23 Status: Ordered Start: 05-07-2021 Probiotic qDay , 0 Refill(s) Start Date: 05/07/21 Status: Ordered rosuvastatin calcium 10 mg oral tablet (3 sources) HMG-CoA Reductase Inhibitor Start: 09-09-2023 rosuvastatin 10 mg o ral tablet Dose : 10 mg = 1 tab(s), Oral, qDay, # 90 tab(s), 1 Refill(s), [id number], Hyperlipidemia, 162, cm, 05/25/24 8:12:00 EST, Height, kg, 05/25/24 8:06:00 EST, Dosing Weight Start Date: 05/25/24 Status: Ordered Medication Dispense Status: Completed Quantity: 90.0 Unit: tab(s) Total Allowed Fills: 2 Fills Dispensed: 0 Indications: Hyperlipidemia, unspecified; vitamin B12 (2 sources) Vitamin B12 Start: 07-06-2023 Vitamin B12 0 Refill(s) Start Date: 07/06/23 Status: Ordered Medication Dispense Status: Completed Total Allowed Fills: 1 Fills Dispensed: 0 Start: 07-06-2023 Vitamin B12 0 Refill(s) Start Date: 07/06/23 Status: Ordered Vitamin D3 (1 source) Start: 04-16-2022 Vitamin D3 qDa y, 0 Refill(s) Start Date: 04/16/22 Status: Ordered Zinc (1 source) Start: 04-16-2022 take 1 mg by mouth o nce daily Zinc mg =, Oral, qDay, 0 Refill(s) Start Date: 04/16/22 Status: Ordered Completed/Discontinued Medications Medication Drug Class(es) Dates Sig (Normalized) Sig (Original) collagen 500 mg oral capsule (2 sources) Start: 01-03-2023 End: 11-14-2023 take 500 mg by mouth once daily collagen Discontinued 500 mg PO DAILY January 03, 2023 12:00am November 14, 2023 11:43am ergocalciferol 1.25 mg oral capsule (3 sources) Provitamin D2 Compound Start: 12-09-2023 End: 12-03-2024 take 1 capsule by mouth once, then take 1 capsule by mouth every week ergocalciferol 50,000 intl units (1.25 mg) oral capsule Dose : 50,000 unit(s) = 1 cap(s), Oral, 2X/week, # 26 cap(s), 3 Refill(s), [id number], Vitamin D deficiency, 162, cm, 12/09/23 8:04:00 EDT, Height, kg, 12/09/23 8:04:00 EDT, Dosing Weight Start Date: 12/09/23 Stop Date: 12/03/24 Status: Ordered Medication Dispense Status: Completed Quantity: 26.0 Unit: cap(s) Total Allowed Fills: 4 Fills Dispensed: 0 Indications: Vitamin D deficiency, unspecified; Start: 11-14-2023 Ergocalciferol (Vitamin D2) 1,250 mcg (50,000 unit) capsule Active 1250 ug PO EVERY WEEK November 14, 2023 12:00am Start: 02-24-2023 ergocalciferol 50,000 intl units (1.25 mg) oral capsule Dose : 50,000 unit(s) = 1 cap(s), Oral, 2X/week, # 26 cap(s), 3 Refill(s), [id number], Vitamin D deficiency, 161.5, cm, 02/23/23 8:11:00 EST, Height, kg, 02/23/23 8:11:00 EST, Dosing Weight Start Date: 02/24/23 Status: Ordered oseltamivir 75 mg oral capsule (4 sources) Neuraminidase Inhibitor Start: 03-09-2022 End: 03-14-2022 take 1 capsule by mouth every twelve hours Oseltamivir (Tamiflu) 75 mg capsule Discontinued 75 mg PO Q12H 10 5 0 March 09, 2022 1:00am March 13, 2022 1:00am March 14, 2022 1:04am Problems Problem Classification Problem Date Documented Da te Episodic/Chronic Acute and chronic tonsillitis (2 sources) 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 Anxiety disorders (4 sources) Anxiety 05-07-2021 Chronic Disorders of lipid metabolism (4 sources) Hyperlipidemia 04-15-2020 Chronic Influenza (5 sources) Influenza due to Influenza A virus; Translations: [Influenza due to other identified influenza virus with other respiratory manifestations] 03-09-2022 Episodic Malaise and fatigue (2 sources) Fatigue 02-23-2023 Episodic Menopausal disorders (1 source) Menopausal syndrome; Translations: [Menopausal and female climacteric states] 11-14-2023 Chronic Comment on above: handout given Mood disorders (4 sources) Depressive disorder; Translations: [Recurrent major depression] 04-15-2020 Chronic Mood disorders (1 source) Mood swings 02-24-2024 Episodic Nutritional deficiencies (2 sources) Vitamin D deficiency 07-06-2023 Chronic Other connective tissue disease (1 source) Biceps tendinitis 03-28-2024 Episodic Other connective tissue disease (1 source) Pain in left arm 03-28-2024 Episodic Other female genital disorders (1 source) Abnormal uterine bleeding; Translations: [Abnormal uterine and vaginal bleeding, unspecified] 11-12-2024 Chronic Other female genital disorders (1 source) Abnormal uterine and vaginal bleeding, unspecified; Translations: [Abnormal uterine and vaginal bleeding, unspecified] Onset: 11-30-2024 Chronic Other gastrointestinal disorders (4 sources) Constipation 05-07-2021 Episodic Other nutritional; endocrine; and metabolic disorders (4 sources) Body mass index 30+ - obesity; Translations: [Obesity, unspecified] 08-27-2022 Chronic Comment on above: handout given Other nutritional; endocrine; and metabolic disorders (2 sources) Obese class I 10-22-2022 Chronic Other screening for suspected conditions (not mental disorders or infectious disease) (7 sources) Viral screening status; Translations: [Patient encounter status] 10-15-2021 Episodic Other upper respiratory disease (3 sources) Seasonal allergy 04-16-2022 Chronic Otitis media and related conditions (2 sources) Dysfunction of eustachian tube 06-16-2022 Episodic Residual codes; unclassified (4 sources) Reduced libido 10-11-2019 Episodic Residual codes; unclassified (2 sources) Screening due 02-23-2023 Episodic Residual codes; unclassified (1 source) Requires varicella vaccination 02-24-2024 Episodic Spondylosis; intervertebral disc disorders; other back problems (2 sources) Low back pain 08-27-2022 Episodic Unclassified (4 sources) Cancer cervix screening status 10-14-2020 Unclassified (20 sources) Patient encounter status 10-11-2019 Unclassified (2 sources) Influenza vaccination declined 02-23-2023 Unclassified (2 sources) Never used tobacco 02-23-2023 Results Test Name Value Interpretation Reference Range Facility .Auto Diffon 12-03-2024 Basophil, Absolute 0.1 10 3/mcL Normal 0.0-0.3 [facility] Comment on above: Performed By: #### L IPID, CMP, GFR #### [address] [address] Basophils/100 WBC (Bld) 0.7 % Normal 0.0-2.5 [facility] Comment on above: Performed By: #### L IPID, CMP, GFR #### [address] [place], [place] [address] Eosinophil, Absolute 0.3 10 3/mcL Normal 0.0-0.7 [facility] Comment on above: Performed By: #### L IPID, CMP, GFR #### [address] [address] Eosinophils/100 WBC (Bld) 4.3 % Normal 0.0-6.0 [facility] Comment on above: Performed By: #### L IPID, CMP, GFR #### [address] [address] Lymphocyte, Absolute 1.9 10 3/mcL Normal 0.9-4.3 [facility] Comment on above: Performed By: #### L IPID, CMP, GFR #### [address] [address] Lymphocytes/100 WBC (Bld) 25.8 % Normal 20.0-40.0 [facility] Comment on above: Performed By: #### L IPID, CMP, GFR #### [address] [address] Monocyte, Absolute 0.6 10 3/mcL Normal 0.1-1.4 [facility] Comment on above: Performed By: #### L IPID, CMP, GFR #### [address] [address] Monocytes/100 WBC (Bld) 7.9 % Normal 2.0-13.0 [facility] Comment on above: Performed By: #### L IPID, CMP, GFR #### [address] [address] Neutrophils/100 WBC (Bld) 61.3 % Normal 50.0-75.0 [facility] Comment on above: Performed By: #### L IPID, CMP, GFR #### [address] [address] .GFRon 12-03-2024 Estimated Glomerular Filtration Rate 80 ml/min/1.73sqm Normal [facility] Comment on above: Result Comment: Stages of Chronic Kidney Disease (CKD) Stage Description eGFR(ml/min/1.73 sq.m.) CKD 1 Normal kidney function or >=90 normal kindney function with possible kidney damage (ex. Proteinuria) CKD 2 Kidney damage with mild loss 60-89 of kidney function CKD 3a Mild to moderate loss of kidney 45-59 function CKD 3b Moderate to severe loss of 30-44 of kindey function CKD 4 Severe loss of kidney function 15-29 CKD 5 Kidney failure <15 Note: (go live 2024) the eGFR calculation was updated to the 2020 CKD-EPI creatinine equation without a race factor to calculate the eGFR results. Performed By: #### L IPID, CMP, GFR #### [address] [address] .Morphon 12-03-2024 RBC morphology finding Nom (Bld) Normal Normal [facility] Comment on above: Performed By: #### T SH, VIDH, ADIFF, ANEU, MORPH, CBC, GFR, CMP #### [place] [address] Platelet Estimate Normal Normal [facility] Comment on above: Performed By: #### T SH, VIDH, ADIFF, ANEU, MORPH, CBC, GFR, CMP #### [address] [address] .NEUABSon 12-03-2024 Neutrophil, Absolute 4.4 10 3/mcL Normal 2.3-8.1 [facility] Comment on above: Performed By: #### L IPID, CMP, GFR #### [address] [address] CBCon 12-03-2024 Erythrocyte distribution width (RBC) [Ratio] 14.0 % Normal 11.5-15.5 [facility] Comment on above: Performed By: #### T SH, VIDH, ADIFF, ANEU, MORPH, CBC, GFR, CMP #### [address] [address] Hematocrit (Bld) [Volume fraction] 37.8 % Normal 34.0-46.0 [facility] Comment on above: Performed By: #### T SH, VIDH, ADIFF, ANEU, MORPH, CBC, GFR, CMP #### [place] [id number] Hgb 12.9 G/dL Normal 12.0-16.0 [facility] Comment on above: Performed By: #### T SH, VIDH, ADIFF, ANEU, MORPH, CBC, GFR, CMP #### [address] [address] MCH (RBC) [Entitic mass] 30.0 pg Normal 27.0-33.0 [facility] Comment on above: Performed By: #### T SH, VIDH, ADIFF, ANEU, MORPH, CBC, GFR, CMP #### [address] [address] MCHC 34.0 G/dL Normal 32.0-36.0 [facility] Comment on above: Performed By: #### T SH, VIDH, ADIFF, ANEU, MORPH, CBC, GFR, CMP #### [address] [address] MCV (RBC) [Entitic vol] 88.2 fL Normal 80.0-99.0 [facility] Comment on above: Performed By: #### T SH, VIDH, ADIFF, ANEU, MORPH, CBC, GFR, CMP #### [address] [address] Platelet 325 10 3/mcL Normal 150-450 [facility] Comment on above: Performed By: #### T SH, VIDH, ADIFF, ANEU, MORPH, CBC, GFR, CMP #### [address] [address] Platelet mean volume (Bld) [Entitic vol] 7.2 fL Normal 6.6-10.5 [facility] Comment on above: Performed By: #### T SH, VIDH, ADIFF, ANEU, MORPH, CBC, GFR, CMP #### [place] [id number] RBC 4.29 10 6/mcL Normal 4.10-5.30 [facility] Comment on above: Performed By: #### T SH, VIDH, ADIFF, ANEU, MORPH, CBC, GFR, CMP #### [address] [address] WBC 7.2 10 3/mcL Normal 4.5-10.8 [facility] Comment on above: Performed By: #### T SH, VIFAINA, IVA, ANEU, MORPH, CBC, GFR, CMP #### [address] [address] CMPon 12-03-2024 Albumin Level 3.7 G/dL Normal 3.5-5.0 [facility] Comment on above: Performed By: #### L IPID, CMP, GFR #### [address] [address] Albumin/Globulin [Mass ratio] 0.9 {ratio} Low 1.1-2.5 [facility] Comment on above: Performed By: #### L IPID, CMP, GFR #### [address] [address] ALP [Catalytic activity/Vol] 56 U/L Normal 40-135 [facility] Comment on above: Performed By: #### L IPID, CMP, GFR #### [address] [address] ALT [Catalytic activity/Vol] 27 U/L Normal 14-59 [facility] Comment on above: Performed By: #### L IPID, CMP, GFR #### [address] [address] AST [Catalytic activity/Vol] 17 U/L Normal 10-40 [facility] Comment on above: Performed By: #### L IPID, CMP, GFR #### [address] [address] Bili Total 0.3 mg/dL Normal 0.2-1.0 [facility] Comment on above: Result Comment: Use of this assay is not recommended for patients undergoing treatment with eltrombopag due to the potential for falsely elevated results. Performed By: #### L IPID, CMP, GFR #### [place] [id number] BUN/Creatinine Ratio 16 ratio Normal 7-27 [facility] Comment on above: Performed By: #### L IPID, CMP, GFR #### [address] [address] Calcium [Mass/Vol] 9.0 mg/dL Normal 8.4-10.2 [facility] Comment on above: Performed By: #### L IPID, CMP, GFR #### [address] [address] Chloride [Moles/Vol] 103 mmol/L Normal 98-107 [facility] Comment on above: Performed By: #### L IPID, CMP, GFR #### [address] [address] CO2 [Moles/Vol] 27 mmol/L Normal 22-29 [facility] Comment on above: Performed By: #### L IPID, CMP, GFR #### [address] [address] Creatinine [Mass/Vol] 0.88 mg/dL Normal 0.51-0.95 [facility] Comment on above: Performed By: #### L IPID, CMP, GFR #### [address] [address] Electrolyte Balance 7.0 mEq/L Normal 4.0-15.0 [facility] Comment on above: Performed By: #### L IPID, CMP, GFR #### [address] [address] Globulin 4.0 G/dL Normal 2.7-4.4 [facility] Comment on above: Performed By: #### L IPID, CMP, GFR #### [address] [address] Glucose [Mass/Vol] 104 mg/dL Normal 70-105 [facility] Comment on above: Performed By: #### L IPID, CMP, GFR #### [address] [address] Potassium [Moles/Vol] 4.5 mmol/L Normal 3.5-5.1 [facility] Comment on above: Performed By: #### L IPID, CMP, GFR #### [facility] [address] [place], [place] [address] Sodium [Moles/Vol] 137 mmol/L Normal 136-145 [facility] Comment on above: Performed By: #### L IPID, CMP, GFR #### [address] [place], [place] [address] Total Protein 7.7 G/dL Normal 6.4-8.2 [facility] Comment on above: Performed By: #### L IPID, CMP, GFR #### [address] [place], [place] [address] Urea nitrogen [Mass/Vol] 14 mg/dL Normal 7-18 [facility] Comment on above: Performed By: #### L IPID, CMP, GFR #### [address] [place], [place] [address] LABORATORYOrdered By: SYSTEM SYSTEM on 12-03-2024 25-hydroxyvitamin D3 [Mass/Vol] 61.3 ng/mL Invalid Interpretation Code AO ADM SS Comment on above: Interpretive Data: I nterpretive Values Based on Total 25(OH) Vitamin D: Deficient <20 ng/mL Insufficient 20 - <30 ng/mL Sufficient 30-100 ng/mL Albumin BCP dye [Mass/Vol] 3.7 G/dL Normal 3.5 - 5.0 G/dL AO ADM SS Albumin/Globulin [Mass ratio] 0.9 {ratio} Low 1.1 - 2.5 ratio AO ADM SS ALP [Catalytic activity/Vol] 56 U/L Normal 40 - 135 U/L AO ADM SS ALT With P-5'-P [Catalytic activity/Vol] 27 U/L Normal 14 - 59 U/L AO ADM SS AST With P-5'-P [Catalytic activity/Vol] 17 U/L Normal 10 - 40 U/L AO ADM SS Basophils (Bld) [#/Vol] 0.1 103/mcL Normal 0.0 - 0.3 10^3/mcL AO Workflow SS Basophils/100 WBC (Bld) 0.7 % Normal 0.0 - 2.5 % AO Workflow SS Bilirubin [Mass/Vol] 0.3 mg/dL Normal 0.2 - 1 .0 mg/dL AO ADM SS Comment on above: Interpretive Data: U se of this assay is not recommended for patients undergoing treatment with eltrombopag due to the potential for falsely elevated results. Calcium [Mass/Vol] 9.0 mg/dL Normal 8.4 - 10. 2 mg/dL AO ADM SS Chloride [Moles/Vol] 103 mmol/L Normal 98 - 10 7 mmol/L AO ADM SS CO2 [Moles/Vol] 27 mmol/L Normal 22 - 29 mmol/L AO ADM SS Creatinine [Mass/Vol] 0.88 mg/dL Normal 0.51 - 0.95 mg/dL AO ADM SS Electrolyte Balance 7.0 mEq/L Normal 4.0 - 15 .0 mEq/L AO ADM SS Eosinophil, Absolute 0.3 103/mcL Normal 0.0 - 0 .7 10^3/mcL AO Workflow SS Eosinophils/100 WBC (Bld) 4.3 % Normal 0.0 - 6.0 % AO Workflow SS Erythrocyte distribution width (RBC) [Ratio] 14.0 % Normal 11.5 - 15.5 % AO Workflow SS Estimated Glomerular Filtration Rate 80 ml/min/1.73sqm Invalid Interpretation Code AO Chemistry S Comment on above: Interpretive Data: Stages of Chronic Kidney Disease (CKD) Stage Description eGFR(ml/min/1.73 sq.m.) CKD 1 Normal kidney function or >=90 normal kindney function with possible kidney damage (ex. Proteinuria) CKD 2 Kidney damage with mild loss 60-89 of kidney function CKD 3a Mild to moderate loss of kidney 45-59 function CKD 3b Moderate to severe loss of 30-44 of kindey function CKD 4 Severe loss of kidney function 15-29 CKD 5 Kidney failure <15 Note: (go live 2024) the eGFR calculation was updated to the 2020 CKD-EPI creatinine equation without a race factor to calculate the eGFR results. Globulin 4.0 G/dL Normal 2.7 - 4.4 G/dL AO ADM SS Glucose [Mass/Vol] 104 mg/dL Normal 70 - 105 mg/dL AO ADM SS Hematocrit (Bld) [Volume fraction] 37.8 % Normal 34.0 - 46.0 % AO Workflow SS Hemoglobin (Bld) [Mass/Vol] 12.9 G/dL Normal 12.0 - 16.0 G/dL AO Workflow SS Lymphocytes (Bld) [#/Vol] 1.9 103/mcL Normal 0.9 - 4.3 10^3/mcL AO Workflow SS Lymphocytes/100 WBC (Bld) 25.8 % Normal 20.0 - 40.0 % AO Workflow SS MCH (RBC) [Entitic mass] 30.0 pg Normal 27.0 - 33.0 pg AO Workflow SS MCHC 34.0 G/dL Normal 32.0 - 36.0 G/dL AO Workflow SS MCV (RBC) [Entitic vol] 88.2 fL Normal 80.0 - 99.0 fL AO Workflow SS Monocytes (Bld) [#/Vol] 0.6 103/mcL Normal 0.1 - 1.4 10^3/mcL AO Workflow SS Monocytes/100 WBC (Bld) 7.9 % Normal 2.0 - 13.0 % AO Workflow SS Neutrophils (Bld) [#/Vol] 4.4 103/mcL Normal 2.3 - 8.1 10^3/mcL AO Workflow SS Neutrophils/100 WBC (Bld) 61.3 % Normal 50.0 - 75.0 % AO Workflow SS Platelet mean volume (Bld) [Entitic vol] 7.2 fL Normal 6.6 - 10.5 fL AO Workflow SS Platelets (Bld) [#/Vol] 325 103/mcL Normal 150 - 450 10^3/mcL AO Workflow SS Platelets LM Ql (Bld) Normal *NA* (12/03/24 8:01 AM) Invalid Interpretation Code AO Workflow SS Potassium [Moles/Vol] 4.5 mmol/L Normal 3.5 - 5.1 mmol/L AO ADM SS Protein [Mass/Vol] 7.7 G/dL Normal 6.4 - 8.2 G/dL AO ADM SS RBC (Bld) [#/Vol] 4.29 106/mcL Normal 4.10 - 5.3 0 10^6/mcL AO Workflow SS RBC morphology finding Nom (Bld) Normal *NA* (12/03/24 8:01 AM) Invalid Interpretation Code AO Workflow SS Sodium [Moles/Vol] 137 mmol/L Normal 136 - 145 mmol/L AO ADM SS TSH Qn 2.22 m[IU]/L Normal 0.36 - 3.74 mcIU/mL AO ADM SS Urea nitrogen [Mass/Vol] 14 mg/dL Normal 7 - 18 mg/dL AO ADM SS Urea nitrogen/Creatinine [Mass ratio] 16 ratio Normal 7 - 27 ratio AO ADM SS WBC (Bld) [#/Vol] 7.2 103/mcL Normal 4.5 - 10.8 10^3/mcL AO Workflow SS TSHon 12-03-2024 TSH Qn 2.22 m[IU]/L Normal 0.36-3.74 [facility] Comment on above: Performed By: #### L IPID, CMP, GFR #### [address] [place], [place] [address] VIDHon 12-03-2024 Vit. D 25-Hydroxy 61.3 ng/mL Normal [facility] Comment on above: Result Comment: Inte rpretive Values Based on Total 25(OH) Vitamin D: Deficient <20 ng/mL Insufficient 20 - <30 ng/mL Sufficient 30-100 ng/mL Performed By: #### L IPID, CMP, GFR #### [address] [place], [place] [address] Pelvic w/ Transvaginalon Pelvic w/ Transvaginal [facility] [address] [place] [address] [phone] Pelvic w/ Transvaginal MR#: [id number] Acct: [id number] Name: JOHNSON CARRASCO Rep #: [id number] : 1975 F 48 From: Rubio hagen MD PCP: Dr. Blossom Moncada, DO Status: REG CLI Study: Pelvic w/ Transvaginal Date of Exam: 11/26/24 Exam# [id number] Ordering Dr: Mary Anne Bravo PROCEDURE: PELVIC W/ TRANSVAGINAL REASON FOR EXAM: VAGINAL BLEEDING TECHNIQUE: Procedure Code: [id number] Modality: US Procedure: PELVIC W/ TRANSVAGINAL COMPARISON: None FINDINGS: LMP: November 11, 2024. Measurements: Uterus: 8.4 cm x 5.4 cm x 4.5 cm with a volume of 105.1 mL Endometrial Thickness: 5 mm. It is fluid-filled. Questionable polyp within the endometrium measuring 7 mm x 8 mm x 6 mm. Right Ovary: 3.5 cm x 2.4 cm x 2.1 cm with a volume of 8.53 mL. Left Ovary: 2.2 cm x 2.1 cm x 2 cm with a volume of 6.27 mL. TRANSABDOMINAL: Uterus: There is an 8 mm x 8 mm x 4 mm fundal fibroid. Endometrium: Fluid-filled. Findings suggestive of a 7 mm x 8 mm x 6 mm polyp. Right ovary: A dominant follicle is seen within the right ovary measuring 1.5 cm x 1.6 cm 1.5 cm. Left ovary: Normal size and echotexture. Other: No large pelvic mass identified. Transvaginal sonography was performed as transabdominal imaging did not explain the patient's presenting symptoms. TRANSVAGINAL: Uterus: Anteverted. Small fundal fibroid. Endometrium: Fluid-filled endometrium measuring 5 mm. Findings suggestive of a 7 mm x 8 mm x 6 mm polyp. Right ovary: Small follicle. Left ovary: Normal size and echotexture. Other adnexal findings: None. Cul-de-sac: No free intraperitoneal fluid identified. Tenderness: No tenderness US/Pelvic w/ Transvaginal IMPRESSION: Small uterine fibroid. Findings suggestive of a 7 mm x 8 mm x 6 mm endometrial polyp. Reading Location: [facility] CC: Dr. Blossom Moncada DO; Dr. Mary Anne Bravo MD Air Dispatcher: Signed Normal [facility] CT CARDIAC SCORING WO IV CON TRASTon 07-16-2024 CT CARDIAC SCORING WO IV CONTRAST Interpreted By: Kunal Low, STUDY: CT CARDIAC SCORING WO IV CONTRAST; 07/16/2024 5:24 pm INDICATION: Signs/Symptoms:HYPER LIPIDEMIA FAMILY HX CAD. COMPARISON: None. ACCESSION NUMBER(S): [id number] ORDERING CLINICIAN: BLOSSOM MONCADA TECHNIQUE: Using prospective ECG gating, limited CT scan of the chest for evaluation of coronary arteries was performed without intravenous contrast. Coronary calcium scoring was performed according to the method of Agatston. FINDINGS: The score and distribution of calcium in the coronary arteries is as follows: LM: 0. LAD: 0. LCx: 0. RCA: 0. Total: 0. The visualized segments of the lungs are normally expanded. The visualized mid/lower ascending thoracic aorta measures 3.4 cm in diameter. The heart is borderline enlarged. No significant pericardial effusion is present. No gross evidence of mediastinal or hilar lymphadenopathy is identified. Small hiatal hernia. Suspected fatty liver. IMPRESSION: 1. Coronary artery calcium score of 0*. 2. Additional findings as above. *Coronary artery calcium scoring may be helpful in predicting the risk for future coronary heart disease events. According to the [employer] Clinical Expert Consensus Task Force, such testing provides important prognostic information in patients with more than one coronary heart disease risk factor. The coronary artery calcium score correlates with the annual risk of a non-fatal myocardial infarction or coronary heart disease . Coronary artery score Annual Risk 0-99 0.4% 100-399 1.3% >400 2.4% These three breakpoints correspond to lower, intermediate and high risk states for future coronary events. Such information should be used, along with appropriate clinical judgment, to make decisions regarding the intensity of risk factor management strategies to treat blood lipids and to modify other non-lipid coronary risk factors. Reference: Stratford P et al. Circulation. 2007; 115:402-426 MACRO: None Signed by: Kunal Low 07/18/2024 10:46 AM Dictation workstation: [id number] [facility] .GFRon 05-25-2024 Estimated Glomerular Filtration Rate 67 ml/min/1.73sqm [facility] Comment on above: Result Comment: Stages of Chronic Kidney Disease (CKD) Stage Description eGFR(ml/min/1.73 sq.m.) CKD 1 Normal kidney function or >=90 normal kindney function with possible kidney damage (ex. Proteinuria) CKD 2 Kidney damage with mild loss 60-89 of kidney function CKD 3a Mild to moderate loss of kidney 45-59 function CKD 3b Moderate to severe loss of 30-44 of kindey function CKD 4 Severe loss of kidney function 15-29 CKD 5 Kidney failure <15 Note: (go live 2024) the eGFR calculation was updated to the 2020 CKD-EPI creatinine equation without a race factor to calculate the eGFR results. Performed By: #### L IPID, CMP, GFR #### [address] [address] CMPon 05-25-2024 Albumin Level 3.7 G/dL Normal 3.5-5.0 [facility] Comment on above: Performed By: #### L IPID, CMP, GFR #### [address] [address] Albumin/Globulin [Mass ratio] 1.0 {ratio} Low 1.1-2.5 [facility] Comment on above: Performed By: #### L IPID, CMP, GFR #### [address] [address] ALP [Catalytic activity/Vol] 52 U/L Normal 40-135 [facility] Comment on above: Performed By: #### L IPID, CMP, GFR #### [address] [address] ALT [Catalytic activity/Vol] 27 U/L Normal 14-59 [facility] Comment on above: Performed By: #### L IPID, CMP, GFR #### [address] [address] AST [Catalytic activity/Vol] 14 U/L Normal 10-40 [facility] Comment on above: Performed By: #### L IPID, CMP, GFR #### [address] [address] Bili Total 0.3 mg/dL Normal 0.2-1.0 [facility] Comment on above: Result Comment: Use of this assay is not recommended for patients undergoing treatment with eltrombopag due to the potential for falsely elevated results. Performed By: #### L IPID, CMP, GFR #### [address] [address] BUN/Creatinine Ratio 11 ratio Normal 7-27 [facility] Comment on above: Performed By: #### L IPID, CMP, GFR #### [address] [address] Calcium [Mass/Vol] 9.0 mg/dL Normal 8.4-10.2 [facility] Comment on above: Performed By: #### L IPID, CMP, GFR #### [address] [address] Chloride [Moles/Vol] 104 mmol/L Normal 98-107 [facility] Comment on above: Performed By: #### L IPID, CMP, GFR #### [address] [address] CO2 [Moles/Vol] 28 mmol/L Normal 22-29 [facility] Comment on above: Performed By: #### L IPID, CMP, GFR #### [address] [address] Creatinine [Mass/Vol] 1.02 mg/dL Normal 0.55-1.02 [facility] Comment on above: Result Comment: Test ing performed on T[employer] Dimension EXL analyzer using a modified kinetic Gal technique. Performed By: #### L IPID, CMP, GFR #### [address] [address] Electrolyte Balance 6.0 mEq/L Normal 4.0-15.0 [facility] Comment on above: Performed By: #### L IPID, CMP, GFR #### [address] [address] Globulin 3.7 G/dL Normal 1.5-3.8 [facility] Comment on above: Performed By: #### L IPID, CMP, GFR #### [address] [address] Glucose [Mass/Vol] 97 mg/dL Normal 70-105 [facility] Comment on above: Performed By: #### L IPID, CMP, GFR #### [address] [address] Potassium [Moles/Vol] 4.7 mmol/L Normal 3.5-5.1 [facility] Comment on above: Performed By: #### L IPID, CMP, GFR #### [place] [address] Sodium [Moles/Vol] 138 mmol/L Normal 136-145 [facility] Comment on above: Performed By: #### L IPID, CMP, GFR #### [address] [address] Total Protein 7.4 G/dL Normal 6.4-8.2 [facility] Comment on above: Performed By: #### L IPID, CMP, GFR #### [address] [address] Urea nitrogen [Mass/Vol] 11 mg/dL Normal 7-18 [facility] Comment on above: Performed By: #### L IPID, CMP, GFR #### [address] [address] LIPIDon 05-25-2024 Cholesterol [Mass/Vol] 131 mg/dL Normal 0-200 [facility] Comment on above: Result Comment: Chol esterol Reference Interval: Less than 200 Desirable 200-239 Borderline high risk 240 and above High risk Performed By: #### L IPID, CMP, GFR #### [address] [address] Cholesterol in HDL [Mass/Vol] 57 mg/dL Normal 40-60 [facility] Comment on above: Performed By: #### L IPID, CMP, GFR #### [address] [address] Cholesterol in LDL [Mass/Vol] 51 mg/dL Normal 0-130 [facility] Comment on above: Performed By: #### L IPID, CMP, GFR #### [address] [address] Triglyceride [Mass/Vol] 113 mg/dL Normal 0-150 [facility] Comment on above: Result Comment: Trig lyceride Reference Interval: Less than 150 Normal 150-199 Borderline high risk 200-499 High risk 500 or higher Very high risk Performed By: #### L IPID, CMP, GFR #### [address] [address] .GFRon 12-07-2023 GFR 76 ml/min/1.73sqm Normal [facility] Comment on above: Result Comment: GFR Population mean for , Non- Americans Ages 20-29 = 116 mL/min/1.73 sq.m. Ages 30-39 = 107 mL/min/1.73 sq.m. Ages 40-49 = 99 mL/min/1.73 sq.m. Ages 50-59 = 93 mL/min/1.73 sq.m. Ages 60-69 = 85 mL/min/1.73 sq.m. Ages 70+ = 75 mL/min/1.73 sq.m. Chronic Kidney Disease: Less than 60 mL/min/1.73 square meters End Stage Renal Disease: Less than 15 mL/min/1.73 square meters Performed By: #### C MP, TSH, GFR, LIPID, VIDH #### [address] [address] GFR Non- 63 ml/min/1.73sqm Normal [facility] Comment on above: Result Comment: GFR Population mean for , Non- Americans Ages 20-29 = 116 mL/min/1.73 sq.m. Ages 30-39 = 107 mL/min/1.73 sq.m. Ages 40-49 = 99 mL/min/1.73 sq.m. Ages 50-59 = 93 mL/min/1.73 sq.m. Ages 60-69 = 85 mL/min/1.73 sq.m. Ages 70+ = 75 mL/min/1.73 sq.m. Chronic Kidney Disease: Less than 60 mL/min/1.73 square meters End Stage Renal Disease: Less than 15 mL/min/1.73 square meters Performed By: #### C MP, TSH, GFR, LIPID, VIDH #### [address] [address] [facility] Albumin Level 4.2 G/dL Normal 3.5-5.0 [facility] Comment on above: Performed By: #### C MP, TSH, GFR, LIPID, VIDH #### [address] [address] Albumin/Globulin [Mass ratio] 1.1 {ratio} Normal 1.1-2.5 [facility] Comment on above: Performed By: #### C MP, TSH, GFR, LIPID, VIDH #### [address] [address] ALP [Catalytic activity/Vol] 55 U/L Normal 40-135 [facility] Comment on above: Performed By: #### C MP, TSH, GFR, LIPID, VIDH #### [address] [address] ALT [Catalytic activity/Vol] 29 U/L Normal 14-59 [facility] Comment on above: Performed By: #### C MP, TSH, GFR, LIPID, VIDH #### [address] [address] AST [Catalytic activity/Vol] 12 U/L Normal 10-40 [facility] Comment on above: Performed By: #### C MP, TSH, GFR, LIPID, VIDH #### [address] [address] Bili Total 0.5 mg/dL Normal 0.2-1.0 [facility] Comment on above: Result Comment: Use of this assay is not recommended for patients undergoing treatment with eltrombopag due to the potential for falsely elevated results. Performed By: #### C MP, TSH, GFR, LIPID, VIDH #### [address] [address] BUN/Creatinine Ratio 9 ratio Normal 7-27 [facility] Comment on above: Performed By: #### C MP, TSH, GFR, LIPID, VIDH #### [address] [address] Calcium [Mass/Vol] 9.3 mg/dL Normal 8.4-10.2 [facility] Comment on above: Performed By: #### C MP, TSH, GFR, LIPID, VIDH #### [address] [address] Chloride [Moles/Vol] 101 mmol/L Normal 98-107 [facility] Comment on above: Performed By: #### C MP, TSH, GFR, LIPID, VIDH #### [address] [address] CO2 [Moles/Vol] 29 mmol/L Normal 22-29 [facility] Comment on above: Performed By: #### C MP, TSH, GFR, LIPID, VIDH #### [address] [address] Creatinine [Mass/Vol] 0.95 mg/dL Normal 0.55-1.02 [facility] Comment on above: Result Comment: Test ing performed on [employer] Dimension EXL analyzer using a modified kinetic Gal technique. Performed By: #### C MP, TSH, GFR, LIPID, VIDH #### [place] [address] Electrolyte Balance 4.0 mEq/L Normal 4.0-15.0 [facility] Comment on above: Performed By: #### C MP, TSH, GFR, LIPID, VIDH #### [place] [address] Globulin 3.8 G/dL Normal [facility] Comment on above: Performed By: #### C MP, TSH, GFR, LIPID, VIDH #### [place] [address] Glucose [Mass/Vol] 87 mg/dL Normal 70-105 [facility] Comment on above: Performed By: #### C MP, TSH, GFR, LIPID, VIDH #### [place] [address] Potassium [Moles/Vol] 4.6 mmol/L Normal 3.5-5.1 [facility] Comment on above: Performed By: #### C MP, TSH, GFR, LIPID, VIDH #### [place] [address] Sodium [Moles/Vol] 134 mmol/L Low 136-145 [facility] Comment on above: Performed By: #### C MP, TSH, GFR, LIPID, VIDH #### [place] [id number] Total Protein 8.0 G/dL Normal 6.4-8.2 [facility] Comment on above: Performed By: #### C MP, TSH, GFR, LIPID, VIDH #### [address] [place], [place] [address] Urea nitrogen [Mass/Vol] 9 mg/dL Normal 7-18 [facility] Comment on above: Performed By: #### C MP, TSH, GFR, LIPID, VIDH #### [address] [place], [place] [address] LABORATORYOrdered By: SYSTEM SYSTEM on 12-07-2023 25-hydroxyvitamin D3 [Mass/Vol] 67.9 ng/mL Invalid Interpretation Code AO ADM SS Comment on above: Interpretive Data: I nterpretive Values Based on Total 25(OH) Vitamin D: Deficient <20 ng/mL Insufficient 20 - <30 ng/mL Sufficient 30-100 ng/mL Albumin BCP dye [Mass/Vol] 4.2 G/dL Normal 3.5 - 5.0 G/dL AO ADM SS Albumin/Globulin [Mass ratio] 1.1 {ratio} Normal 1.1 - 2.5 ratio AO ADM SS ALP [Catalytic activity/Vol] 55 U/L Normal 40 - 135 U/L AO ADM SS ALT With P-5'-P [Catalytic activity/Vol] 29 U/L Normal 14 - 59 U/L AO ADM SS AST With P-5'-P [Catalytic activity/Vol] 12 U/L Normal 10 - 40 U/L AO ADM SS Bilirubin [Mass/Vol] 0.5 mg/dL Normal 0.2 - 1 .0 mg/dL AO ADM SS Comment on above: Interpretive Data: U se of this assay is not recommended for patients undergoing treatment with eltrombopag due to the potential for falsely elevated results. Calcium [Mass/Vol] 9.3 mg/dL Normal 8.4 - 10. 2 mg/dL AO ADM SS Chloride [Moles/Vol] 101 mmol/L Normal 98 - 10 7 mmol/L AO ADM SS CO2 [Moles/Vol] 29 mmol/L Normal 22 - 29 mmol/L AO ADM SS Creatinine [Mass/Vol] 0.95 mg/dL Normal 0.55 - 1.02 mg/dL AO ADM SS Comment on above: Interpretive Data: T esting performed on Siemens Dimension EXL analyzer using a modified kinetic Gal technique. Electrolyte Balance 4.0 mEq/L Normal 4.0 - 15 .0 mEq/L AO ADM SS GFR/1.73 sq M.predicted among blacks MDRD (S/P/Bld) [Vol rate/Area] 76 ml/min/1.73sqm Invalid Interpretation Code AO Chemistry S Comment on above: Interpretive Data: GFR Population mean for , Non- Americans Ages 20-29 = 116 mL/min/1.73 sq.m. Ages 30-39 = 107 mL/min/1.73 sq.m. Ages 40-49 = 99 mL/min/1.73 sq.m. Ages 50-59 = 93 mL/min/1.73 sq.m. Ages 60-69 = 85 mL/min/1.73 sq.m. Ages 70+ = 75 mL/min/1.73 sq.m. Chronic Kidney Disease: Less than 60 mL/min/1.73 square meters End Stage Renal Disease: Less than 15 mL/min/1.73 square meters GFR/1.73 sq M.predicted among non-blacks MDRD (S/P/Bld) [Vol rate/Area] 63 ml/min/1.73sqm Invalid Interpretation Code AO Chemistry S Comment on above: Interpretive Data: GFR Population mean for , Non- Americans Ages 20-29 = 116 mL/min/1.73 sq.m. Ages 30-39 = 107 mL/min/1.73 sq.m. Ages 40-49 = 99 mL/min/1.73 sq.m. Ages 50-59 = 93 mL/min/1.73 sq.m. Ages 60-69 = 85 mL/min/1.73 sq.m. Ages 70+ = 75 mL/min/1.73 sq.m. Chronic Kidney Disease: Less than 60 mL/min/1.73 square meters End Stage Renal Disease: Less than 15 mL/min/1.73 square meters Globulin 3.8 G/dL Invalid Interpretation Code AO ADM SS Glucose [Mass/Vol] 87 mg/dL Normal 70 - 105 mg/dL AO ADM SS Potassium [Moles/Vol] 4.6 mmol/L Normal 3.5 - 5.1 mmol/L AO ADM SS Protein [Mass/Vol] 8.0 G/dL Normal 6.4 - 8.2 G/dL AO ADM SS Sodium [Moles/Vol] 134 mmol/L Low 136 - 145 mmol/L AO ADM SS TSH Qn 2.16 m[IU]/L Normal 0.36 - 3.74 mcIU/mL AO ADM SS Urea nitrogen [Mass/Vol] 9 mg/dL Normal 7 - 18 mg/dL AO ADM SS Urea nitrogen/Creatinine [Mass ratio] 9 ratio Normal 7 - 27 ratio AO ADM SS LABORATORYOrdered By: Ameena Domingo on 12-07-2023 Cholesterol [Mass/Vol] 150 mg/dL Normal 0 - 2 00 mg/dL AO ADM SS Comment on above: Interpretive Data: C holesterol Reference Interval: Less than 200 Desirable 200-239 Borderline high risk 240 and above High risk Cholesterol in HDL [Mass/Vol] 57 mg/dL Normal 40 - 60 mg/dL AO ADM SS Cholesterol in LDL [Mass/Vol] 78 mg/dL Normal 0 - 130 mg/dL AO ADM SS Triglyceride [Mass/Vol] 76 mg/dL Normal 0 - 150 mg/dL AO ADM SS Comment on above: Interpretive Data: T riglyceride Reference Interval: Less than 150 Normal 150-199 Borderline high risk 200-499 High risk 500 or higher Very high risk LIPIDon 12-07-2023 Cholesterol [Mass/Vol] 150 mg/dL Normal 0-200 [facility] Comment on above: Result Comment: Chol esterol Reference Interval: Less than 200 Desirable 200-239 Borderline high risk 240 and above High risk Performed By: #### C MP, TSH, GFR, LIPID, VIDH #### [address] [address] Cholesterol in HDL [Mass/Vol] 57 mg/dL Normal 40-60 [facility] Comment on above: Performed By: #### C MP, TSH, GFR, LIPID, VIDH #### [address] [address] Cholesterol in LDL [Mass/Vol] 78 mg/dL Normal 0-130 [facility] Comment on above: Performed By: #### C MP, TSH, GFR, LIPID, VIDH #### [address] [address] Triglyceride [Mass/Vol] 76 mg/dL Normal 0-150 [facility] Comment on above: Result Comment: Trig lyceride Reference Interval: Less than 150 Normal 150-199 Borderline high risk 200-499 High risk 500 or higher Very high risk Performed By: #### C MP, TSH, GFR, LIPID, VIDH #### [address] [address] TSHon 12-07-2023 TSH Qn 2.16 m[IU]/L Normal 0.36-3.74 [facility] Comment on above: Performed By: #### C MP, TSH, GFR, LIPID, VIDH #### [address] [address] VIDHon 12-07-2023 Vit. D 25-Hydroxy 67.9 ng/mL Normal [facility] Comment on above: Result Comment: Inte rpretive Values Based on Total 25(OH) Vitamin D: Deficient <20 ng/mL Insufficient 20 - <30 ng/mL Sufficient 30-100 ng/mL Performed By: #### C MP, TSH, GFR, LIPID, VIDH #### [address] [address] .Auto Diffon 02-23-2023 Basophil, Absolute 0.1 10 3/mcL Normal 0.0-0.2 [facility] ([place]) Comment on above: Performed By: #### G FR, CMP, VIDH, TSH, CBC, ADIFF, ANEU, MG #### [place] [address] #### B12 #### [address] [address] Basophils/100 WBC (Bld) 1.1 % Normal 0.0-2.5 [facility] ([place]) Comment on above: Performed By: #### G FR, CMP, VIDH, TSH, CBC, ADIFF, ANEU, MG #### [place] [address] #### B12 #### [address] [address] Eosinophil, Absolute 0.4 10 3/mcL Normal 0.0-0.4 [facility] ([place]) Comment on above: Performed By: #### G FR, CMP, VIDH, TSH, CBC, ADIFF, ANEU, MG #### [address] [address] #### B12 #### [address] [address] Eosinophils/100 WBC (Bld) 5.7 % Normal 0.0-7.0 [facility] ([place]) Comment on above: Performed By: #### G FR, CMP, VIDH, TSH, CBC, ADIFF, ANEU, MG #### [place] [address] #### B12 #### [address] [address] Lymphocyte, Absolute 1.8 10 3/mcL Normal 0.8-3.9 [facility] ([place]) Comment on above: Performed By: #### G FR, CMP, VIDH, TSH, CBC, ADIFF, ANEU, MG #### [place] [address] #### B12 #### [address] [address] Lymphocytes/100 WBC (Bld) 24.1 % Normal 10.0-50.0 [facility] ([place]) Comment on above: Performed By: #### G FR, CMP, VIDH, TSH, CBC, ADIFF, ANEU, MG #### [place] [address] #### B12 #### [address] [address] Monocyte, Absolute 0.6 10 3/mcL Normal 0.2-1.0 [facility] ([place]) Comment on above: Performed By: #### G FR, CMP, VIDH, TSH, CBC, ADIFF, ANEU, MG #### [place] [address] #### B12 #### [address] [address] Monocytes/100 WBC (Bld) 7.7 % Normal 1.7-13.0 [facility] ([place]) Comment on above: Performed By: #### G FR, CMP, VIDH, TSH, CBC, ADIFF, ANEU, MG #### [address] [address] #### B12 #### [address] [address] Neutrophils/100 WBC (Bld) 61.4 % Normal 37.0-80.0 [facility] ([place]) Comment on above: Performed By: #### G FR, CMP, VIDH, TSH, CBC, ADIFF, ANEU, MG #### [address] [address] #### B12 #### [address] [address] .GFRon 02-23-2023 GFR Non- 60 ml/min/1.73sqm Normal [facility] ([place]) Comment on above: Result Comment: GFR Population mean for , Non- Americans Ages 20-29 = 116 mL/min/1.73 sq.m. Ages 30-39 = 107 mL/min/1.73 sq.m. Ages 40-49 = 99 mL/min/1.73 sq.m. Ages 50-59 = 93 mL/min/1.73 sq.m. Ages 60-69 = 85 mL/min/1.73 sq.m. Ages 70+ = 75 mL/min/1.73 sq.m. Chronic Kidney Disease: Less than 60 mL/min/1.73 square meters End Stage Renal Disease: Less than 15 mL/min/1.73 square meters Performed By: #### G FR, CMP, VIDH, TSH, CBC, ADIFF, ANEU, MG #### [address] [address] #### B12 #### [address] [address] GFR 72 ml/min/1.73sqm Normal [facility] ([place]) Comment on above: Result Comment: GFR Population mean for , Non- Americans Ages 20-29 = 116 mL/min/1.73 sq.m. Ages 30-39 = 107 mL/min/1.73 sq.m. Ages 40-49 = 99 mL/min/1.73 sq.m. Ages 50-59 = 93 mL/min/1.73 sq.m. Ages 60-69 = 85 mL/min/1.73 sq.m. Ages 70+ = 75 mL/min/1.73 sq.m. Chronic Kidney Disease: Less than 60 mL/min/1.73 square meters End Stage Renal Disease: Less than 15 mL/min/1.73 square meters Performed By: #### G FR, CMP, VIDH, TSH, CBC, ADIFF, ANEU, MG #### [place] [address] #### B12 #### [address] [address] .NEUABSon 02-23-2023 Neutrophil, Absolute 4.5 10 3/mcL Normal 2.9-6.2 [facility] ([place]) Comment on above: Performed By: #### G FR, CMP, VIDH, TSH, CBC, ADIFF, ANEU, MG #### [place] [address] #### B12 #### [address] [address] B12on 02-23-2023 Cobalamin (Vitamin B12) [Mass/Vol] 391 pg/mL Normal 211-911 [facility] ([place]) Comment on above: Performed By: #### G FR, CMP, VIDH, TSH, CBC, ADIFF, ANEU, MG #### [address] [address] #### B12 #### [place] [address] CBCon 02-23-2023 Erythrocyte distribution width (RBC) [Ratio] 13.9 % Normal 11.5-14.5 [facility] ([place]) Comment on above: Performed By: #### G FR, CMP, VIDH, TSH, CBC, ADIFF, ANEU, MG #### [place] [address] #### B12 #### [place] [address] Hematocrit (Bld) [Volume fraction] 37.7 % Normal 37.0-47.0 [facility] ([place]) Comment on above: Performed By: #### G FR, CMP, VIDH, TSH, CBC, ADIFF, ANEU, MG #### [place] [address] #### B12 #### [place] [address] Hgb 12.5 G/dL Normal 12.0-16.0 [facility] ([place]) Comment on above: Performed By: #### G FR, CMP, VIDH, TSH, CBC, ADIFF, ANEU, MG #### [place] [address] #### B12 #### [place] [address] MCH (RBC) [Entitic mass] 29.1 pg Normal 27.0-31.2 [facility] ([place]) Comment on above: Performed By: #### G FR, CMP, VIDH, TSH, CBC, ADIFF, ANEU, MG #### [place] [address] #### B12 #### [place] [address] MCHC 33.2 G/dL Normal 33.0-37.0 [facility] ([place]) Comment on above: Performed By: #### G FR, CMP, VIDH, TSH, CBC, ADIFF, ANEU, MG #### [place] [address] #### B12 #### [place] [address] MCV (RBC) [Entitic vol] 87.4 fL Normal 80.0-94.0 [facility] ([place]) Comment on above: Performed By: #### G FR, CMP, VIDH, TSH, CBC, ADIFF, ANEU, MG #### [place] [address] #### B12 #### [place] [address] Platelet 388 10 3/mcL Normal 130-400 [facility] ([place]) Comment on above: Performed By: #### G FR, CMP, VIDH, TSH, CBC, ADIFF, ANEU, MG #### [place] [address] #### B12 #### [place] [address] Platelet mean volume (Bld) [Entitic vol] 6.9 fL Low 7.4-10.4 [facility] ([place]) Comment on above: Performed By: #### G FR, CMP, VIDH, TSH, CBC, ADIFF, ANEU, MG #### [place] [address] #### B12 #### [place] [address] RBC 4.31 10 6/mcL Normal 4.20-5.40 [facility] ([place]) Comment on above: Performed By: #### G FR, CMP, VIDH, TSH, CBC, ADIFF, ANEU, MG #### [place] [address] #### B12 #### [place] [address] WBC 7.4 10 3/mcL Normal 4.6-10.8 [facility] ([place]) Comment on above: Performed By: #### G FR, CMP, VIDH, TSH, CBC, ADIFF, ANEU, MG #### [place] [address] #### B12 #### [place] [address] CMPon 02-23-2023 Albumin Level 3.8 G/dL Normal 3.5-5.0 [facility] ([place]) Comment on above: Performed By: #### G FR, CMP, VIDH, TSH, CBC, ADIFF, ANEU, MG #### [place] [address] #### B12 #### [address] [address] Albumin/Globulin [Mass ratio] 0.9 {ratio} Low 1.1-2.5 [facility] ([place]) Comment on above: Performed By: #### G FR, CMP, VIDH, TSH, CBC, ADIFF, ANEU, MG #### [place] [address] #### B12 #### [address] [address] ALP [Catalytic activity/Vol] 55 U/L Normal 40-135 [facility] ([place]) Comment on above: Performed By: #### G FR, CMP, VIDH, TSH, CBC, ADIFF, ANEU, MG #### [place] [address] #### B12 #### [place] [address] ALT [Catalytic activity/Vol] 22 U/L Normal 14-59 [facility] ([place]) Comment on above: Performed By: #### G FR, CMP, VIDH, TSH, CBC, ADIFF, ANEU, MG #### [place] [address] #### B12 #### [place] [address] AST [Catalytic activity/Vol] 10 U/L Normal 10-40 [facility] ([place]) Comment on above: Performed By: #### G FR, CMP, VIDH, TSH, CBC, ADIFF, ANEU, MG #### [place] [address] #### B12 #### [address] [address] Bili Total 0.3 mg/dL Normal 0.2-1.0 [facility] ([place]) Comment on above: Result Comment: Use of this assay is not recommended for patients undergoing treatment with eltrombopag due to the potential for falsely elevated results. Performed By: #### G FR, CMP, VIDH, TSH, CBC, ADIFF, ANEU, MG #### [address] [address] #### B12 #### [address] [address] BUN/Creatinine Ratio 11 ratio Normal 7-27 [facility] ([place]) Comment on above: Performed By: #### G FR, CMP, VIDH, TSH, CBC, ADIFF, ANEU, MG #### [place] [address] #### B12 #### [address] [address] Calcium [Mass/Vol] 9.4 mg/dL Normal 8.4-10.2 [facility] ([place]) Comment on above: Performed By: #### G FR, CMP, VIDH, TSH, CBC, ADIFF, ANEU, MG #### [place] [address] #### B12 #### [address] [address] Chloride [Moles/Vol] 101 mmol/L Normal 98-107 [facility] ([place]) Comment on above: Performed By: #### G FR, CMP, VIDH, TSH, CBC, ADIFF, ANEU, MG #### [place] [address] #### B12 #### [address] [address] CO2 [Moles/Vol] 25 mmol/L Normal 22-29 [facility] ([place]) Comment on above: Performed By: #### G FR, CMP, VIDH, TSH, CBC, ADIFF, ANEU, MG #### [place] [address] #### B12 #### [address] [address] Creatinine [Mass/Vol] 0.99 mg/dL Normal 0.55-1.02 [facility] ([place]) Comment on above: Performed By: #### G FR, CMP, VIDH, TSH, CBC, ADIFF, ANEU, MG #### [place] [address] #### B12 #### [address] [address] Electrolyte Balance 14.0 mEq/L Normal 4.0-15.0 [facility] ([place]) Comment on above: Performed By: #### G FR, CMP, VIDH, TSH, CBC, ADIFF, ANEU, MG #### [place] [address] #### B12 #### [place] [address] Globulin 4.1 G/dL Normal [facility] ([place]) Comment on above: Performed By: #### G FR, CMP, VIDH, TSH, CBC, ADIFF, ANEU, MG #### [place] [address] #### B12 #### [place] [address] Glucose [Mass/Vol] 100 mg/dL Normal 70-105 [facility] ([place] Comment on above: Performed By: #### G FR, CMP, VIDH, TSH, CBC, ADIFF, ANEU, MG #### [place] [address] #### B12 #### [place] [address] Potassium [Moles/Vol] 4.8 mmol/L Normal 3.5-5.1 [facility] ([place]) Comment on above: Performed By: #### G FR, CMP, VIDH, TSH, CBC, ADIFF, ANEU, MG #### [place] [address] #### B12 #### [place] [address] Sodium [Moles/Vol] 140 mmol/L Normal 136-145 [facility] ([place] Comment on above: Performed By: #### G FR, CMP, VIDH, TSH, CBC, ADIFF, ANEU, MG #### [place] [address] #### B12 #### [place] [address] Total Protein 7.9 G/dL Normal 6.4-8.2 [facility] ([place]) Comment on above: Performed By: #### G FR, CMP, VIDH, TSH, CBC, ADIFF, ANEU, MG #### [place] [address] #### B12 #### [place] [address] Urea nitrogen [Mass/Vol] 11 mg/dL Normal 7-18 [facility] ([place] Comment on above: Performed By: #### G FR, CMP, VIDH, TSH, CBC, ADIFF, ANEU, MG #### [place] [address] #### B12 #### [place] [address] MGon 02-23-2023 Magnesium [Mass/Vol] 2.0 mg/dL Normal 1.8-2.4 [facility] ([place]) Comment on above: Performed By: #### G FR, CMP, VIDH, TSH, CBC, ADIFF, ANEU, MG #### [place] [address] #### B12 #### [place] [address] TSHon 02-23-2023 TSH Qn 2.28 m[IU]/L Normal 0.36-3.74 [facility] ([place]) Comment on above: Performed By: #### G FR, CMP, VIDH, TSH, CBC, ADIFF, ANEU, MG #### [place] [address] #### B12 #### [place] [address] VIDHon 02-23-2023 Vit. D 25-Hydroxy 30.6 ng/mL Normal [facility] ([place]) Comment on above: Result Comment: Inte rpretive Values Based on Total 25(OH) Vitamin D: Deficient <20 ng/mL Insufficient 20 - <30 ng/mL Sufficient 30-100 ng/mL Performed By: #### G FR, CMP, VIDH, TSH, CBC, ADIFF, ANEU, MG #### [address] [address] #### B12 #### [address] [address] Beta hCG serum qualOrdered B y: Wesley Chapin on 01-06-2023 Beta HCG ( test) Ql Negative [facility] .GFRon 10-22-2022 GFR Non- 58 ml/min/1.73sqm Normal [facility] ([place]) Comment on above: Result Comment: GFR Population mean for , Non- Americans Ages 20-29 = 116 mL/min/1.73 sq.m. Ages 30-39 = 107 mL/min/1.73 sq.m. Ages 40-49 = 99 mL/min/1.73 sq.m. Ages 50-59 = 93 mL/min/1.73 sq.m. Ages 60-69 = 85 mL/min/1.73 sq.m. Ages 70+ = 75 mL/min/1.73 sq.m. Chronic Kidney Disease: Less than 60 mL/min/1.73 square meters End Stage Renal Disease: Less than 15 mL/min/1.73 square meters Performed By: #### G FR, CMP, VIDH, TSH, CBC, ADIFF, ANEU, MG #### [address] [address] #### B12 #### [address] [address] GFR 70 ml/min/1.73sqm Normal [facility] ([place]) Comment on above: Result Comment: GFR Population mean for , Non- Americans Ages 20-29 = 116 mL/min/1.73 sq.m. Ages 30-39 = 107 mL/min/1.73 sq.m. Ages 40-49 = 99 mL/min/1.73 sq.m. Ages 50-59 = 93 mL/min/1.73 sq.m. Ages 60-69 = 85 mL/min/1.73 sq.m. Ages 70+ = 75 mL/min/1.73 sq.m. Chronic Kidney Disease: Less than 60 mL/min/1.73 square meters End Stage Renal Disease: Less than 15 mL/min/1.73 square meters Performed By: #### G FR, CMP, VIDH, TSH, CBC, ADIFF, ANEU, MG #### [place] [address] #### B12 #### [address] [address] Albumin Level 3.9 G/dL Normal 3.5-5.0 [facility] ([place]) Comment on above: Performed By: #### G FR, CMP, VIDH, TSH, CBC, ADIFF, ANEU, MG #### [place] [address] #### B12 #### [place] [address] Albumin/Globulin [Mass ratio] 1.0 {ratio} Low 1.1-2.5 [facility] ([place]) Comment on above: Performed By: #### G FR, CMP, VIDH, TSH, CBC, ADIFF, ANEU, MG #### [place] [address] #### B12 #### [address] [address] ALP [Catalytic activity/Vol] 48 U/L Normal 40-135 [facility] ([place]) Comment on above: Performed By: #### G FR, CMP, VIDH, TSH, CBC, ADIFF, ANEU, MG #### [place] [address] #### B12 #### [place] [id number] ALT [Catalytic activity/Vol] 22 U/L Normal 14-59 [facility] ([place]) Comment on above: Performed By: #### G FR, CMP, VIDH, TSH, CBC, ADIFF, ANEU, MG #### [place] [address] #### B12 #### [address] [address] AST [Catalytic activity/Vol] 11 U/L Normal 10-40 [facility] ([place]) Comment on above: Performed By: #### G FR, CMP, VIDH, TSH, CBC, ADIFF, ANEU, MG #### [place] [address] #### B12 #### [place] [address] Bili Total 0.3 mg/dL Normal 0.2-1.0 [facility] ([place]) Comment on above: Result Comment: Use of this assay is not recommended for patients undergoing treatment with eltrombopag due to the potential for falsely elevated results. Performed By: #### G FR, CMP, VIDH, TSH, CBC, ADIFF, ANEU, MG #### [place] [address] #### B12 #### [place] [address] BUN/Creatinine Ratio 10 ratio Normal 7-27 [facility] ([place] Comment on above: Performed By: #### G FR, CMP, VIDH, TSH, CBC, ADIFF, ANEU, MG #### [place] [address] #### B12 #### [place] [address] Calcium [Mass/Vol] 9.0 mg/dL Normal 8.4-10.2 [facility] ([place] Comment on above: Performed By: #### G FR, CMP, VIDH, TSH, CBC, ADIFF, ANEU, MG #### [place] [address] #### B12 #### [place] [address] Chloride [Moles/Vol] 102 mmol/L Normal 98-107 [facility] ([place] Comment on above: Performed By: #### G FR, CMP, VIDH, TSH, CBC, ADIFF, ANEU, MG #### [place] [address] #### B12 #### [address] [address] CO2 [Moles/Vol] 28 mmol/L Normal 22-29 [facility] ([place] Comment on above: Performed By: #### G FR, CMP, VIDH, TSH, CBC, ADIFF, ANEU, MG #### [place] [address] #### B12 #### [place] [address] Creatinine [Mass/Vol] 1.02 mg/dL Normal 0.55-1.02 [facility] ([place] Comment on above: Performed By: #### G FR, CMP, VIDH, TSH, CBC, ADIFF, ANEU, MG #### [place] [address] #### B12 #### [place] [address] Electrolyte Balance 7.0 mEq/L Normal 4.0-15.0 [facility] ([place]) Comment on above: Performed By: #### G FR, CMP, VIDH, TSH, CBC, ADIFF, ANEU, MG #### [place] [address] #### B12 #### [place] [address] Globulin 4.0 G/dL Normal [facility] ([place]) Comment on above: Performed By: #### G FR, CMP, VIDH, TSH, CBC, ADIFF, ANEU, MG #### [place] [address] #### B12 #### [place] [address] Glucose [Mass/Vol] 97 mg/dL Normal 70-105 [facility] ([place] Comment on above: Performed By: #### G FR, CMP, VIDH, TSH, CBC, ADIFF, ANEU, MG #### [address] [address] #### B12 #### [address] [address] Potassium [Moles/Vol] 4.7 mmol/L Normal 3.5-5.1 [facility] ([place] Comment on above: Performed By: #### G FR, CMP, VIDH, TSH, CBC, ADIFF, ANEU, MG #### [place] [address] #### B12 #### [address] [address] Sodium [Moles/Vol] 137 mmol/L Normal 136-145 [facility] ([place] Comment on above: Performed By: #### G FR, CMP, VIDH, TSH, CBC, ADIFF, ANEU, MG #### [place] [address] #### B12 #### [address] [address] Total Protein 7.9 G/dL Normal 6.4-8.2 [facility] ([place]) Comment on above: Performed By: #### G FR, CMP, VIDH, TSH, CBC, ADIFF, ANEU, MG #### [address] [address] #### B12 #### [address] [address] Urea nitrogen [Mass/Vol] 10 mg/dL Normal 7-18 [facility] ([place]) Comment on above: Performed By: #### G FR, CMP, VIDH, TSH, CBC, ADIFF, ANEU, MG #### [place] [address] #### B12 #### [address] [address] LIPIDon 10-22-2022 Cholesterol [Mass/Vol] 218 mg/dL High 0-200 [facility] ([place]) Comment on above: Result Comment: Chol esterol Reference Interval: Less than 200 Desirable 200-239 Borderline high risk 240 and above High risk Performed By: #### G FR, CMP, VIDH, TSH, CBC, ADIFF, ANEU, MG #### [address] [address] #### B12 #### [address] [address] Cholesterol in HDL [Mass/Vol] 46 mg/dL Normal 40-60 [facility] ([place] Comment on above: Performed By: #### G FR, CMP, VIDH, TSH, CBC, ADIFF, ANEU, MG #### [address] [address] #### B12 #### [address] [address] Cholesterol in LDL [Mass/Vol] 131 mg/dL High 0-130 [facility] ([place] Comment on above: Performed By: #### G FR, CMP, VIDH, TSH, CBC, ADIFF, ANEU, MG #### [address] [address] #### B12 #### [address] [address] Triglyceride [Mass/Vol] 205 mg/dL High 0-150 [facility] ([place]) Comment on above: Result Comment: Trig lyceride Reference Interval: Less than 150 Normal 150-199 Borderline high risk 200-499 High risk 500 or higher Very high risk Performed By: #### G FR, CMP, VIDH, TSH, CBC, ADIFF, ANEU, MG #### [address] [address] #### B12 #### [address] [address] XR SPINE LUMBOSACRAL 2 OR 3 VIEWSon 08-31-2022 XR SPINE LUMBOSACRAL 2 OR 3 VIEWS ORIGINAL EXAMINATION: 3 XRAY VIEWS OF THE LUMBAR SPINE08/30/2022 1:12 pm COMPARISON: None HISTORY: ORDERING SYSTEM PROVIDED HISTORY: Reason for Exam: Pain lower back pain with radiation FINDINGS: 5 lumbar-type vertebral bodies show normal height and AP alignment with no disc space narrowing. There is moderate lower lumbar spine facet arthropathy. No other significant degenerative changes. Symmetric SI joints with mild bilateral degenerative sacroiliitis. IMPRESSION: Degenerative changes. No acute findings. Interpreted by: Jere Major MD Preliminary Report By: Jere Major MD Electronically signed By Jere Major MD Dictated Date: 08/31/2022 11:50:02 AM Prelim Date: 08/31/2022 11:50:55 AM Sign Date: 08/31/2022 11:50:55 AM Ordering Provider: BLOSSOM MONCADA [facility] ([place]) Cervical or vagninal specime n microscopic examination by cytology stain (reported asOrdered By: Dr. Rojas on 06-29-2022 Cytology report Cyto stain Doc (Cvx/Vag) Comment . [facility] Comment on above: The Pap smear is a s creening test designed to aid in thedetection of premalignant and malignant conditions of theuterine cervix. It is not a diagnostic procedure andshould not be used as the sole means of detecting cervicalcancer. Both false-positive and false-negative reports dooccur. Detection in cervical specim en of any of human papilloma virus (HPV) 16, 18, 31, 33,Ordered By: Dr. Rojas on 06-29-2022 HPV 16+18+31+33+35+39+45+5 1+52+56+58+59+66+68 DNA Probe+sig amp Ql (Cvx) Negative Negative [facility] Comment on above: This nucleic acid am plification test detects fourteen high- risk HPV types (16,18,31,33,35,39,45,51,52,56,58,59,66,68)without differentiation. Laboratory - CytologyOrdered By: Dr. Rojas on 06-29-2022 Vice President Of Procurement Cyto stain Nom (Cvx/Vag) [ID] Comment . [facility] Comment on above: [place] [employer] totechnologist (ASCP) Laboratory - Miscellaneous t estsOrdered By: Dr. Rojas on 06-29-2022 Service comment (Unsp spec) [Interp] Comment . [facility] Comment on above: This liquid based Th inPrep(R) pap test was screened withthe use of an image guided system. Service comment (Unsp spec) [Interp] . . [facility] Liquid-based cerv Pap + CT/G C by MITALI w reflex to high-risk HPV for ASCUSOrdered By: Dr. Rojas on 06-29-2022 Cytology report Cyto stain.thin prep Doc (Cvx/Vag) Comment . [facility] Comment on above: Criteria not met, HP V Genotype not performed.Performed at: [facility] [address] [place], [place] [id number] Director: Jorden Tsai MD, Phone: [phone] at: - [facility] [id number] Director: Cristina Hoyt MD, Phone: [phone] at: = - [facility] [id number] Director: Cristina Hoyt MD, Phone: [phone] No Panel InformationOrdered By: Dr. Rojas on 06-29-2022 Pathology report final diagnosis Narrative Comment . [facility] Comment on above: NEGATIVE FOR INTRAEP ITHELIAL LESION OR MALIGNANCY. .GFRon 04-16-2022 GFR 90 ml/min/1.73sqm Normal [facility] ([place]) Comment on above: Result Comment: GFR Population mean for , Non- Americans Ages 20-29 = 116 mL/min/1.73 sq.m. Ages 30-39 = 107 mL/min/1.73 sq.m. Ages 40-49 = 99 mL/min/1.73 sq.m. Ages 50-59 = 93 mL/min/1.73 sq.m. Ages 60-69 = 85 mL/min/1.73 sq.m. Ages 70+ = 75 mL/min/1.73 sq.m. Chronic Kidney Disease: Less than 60 mL/min/1.73 square meters End Stage Renal Disease: Less than 15 mL/min/1.73 square meters Performed By: #### G FR, CMP, VIDH, TSH, CBC, ADIFF, ANEU, MG #### [place] [address] [place], [place] [address] #### B12 #### [address] [address] GFR Non- 74 ml/min/1.73sqm Normal [facility] ([place]) Comment on above: Result Comment: GFR Population mean for , Non- Americans Ages 20-29 = 116 mL/min/1.73 sq.m. Ages 30-39 = 107 mL/min/1.73 sq.m. Ages 40-49 = 99 mL/min/1.73 sq.m. Ages 50-59 = 93 mL/min/1.73 sq.m. Ages 60-69 = 85 mL/min/1.73 sq.m. Ages 70+ = 75 mL/min/1.73 sq.m. Chronic Kidney Disease: Less than 60 mL/min/1.73 square meters End Stage Renal Disease: Less than 15 mL/min/1.73 square meters Performed By: #### G FR, CMP, VIDH, TSH, CBC, ADIFF, ANEU, MG #### [address] [address] #### B12 #### [address] [address] [facility] Albumin Level 4.1 G/dL Normal 3.5-5.0 [facility] ([place]) Comment on above: Performed By: #### G FR, CMP, VIDH, TSH, CBC, ADIFF, ANEU, MG #### [address] [address] #### B12 #### [address] [address] Albumin/Globulin [Mass ratio] 0.9 {ratio} Low 1.1-2.5 [facility] ([place]) Comment on above: Performed By: #### G FR, CMP, VIDH, TSH, CBC, ADIFF, ANEU, MG #### [address] [address] #### B12 #### [address] [address] ALP [Catalytic activity/Vol] 63 U/L Normal 40-135 [facility] ([place]) Comment on above: Performed By: #### G FR, CMP, VIDH, TSH, CBC, ADIFF, ANEU, MG #### [address] [address] #### B12 #### [address] [address] ALT [Catalytic activity/Vol] 24 U/L Normal 14-59 [facility] ([place]) Comment on above: Performed By: #### G FR, CMP, VIDH, TSH, CBC, ADIFF, ANEU, MG #### [place] [address] #### B12 #### [address] [address] AST [Catalytic activity/Vol] 14 U/L Normal 10-40 [facility] ([place]) Comment on above: Performed By: #### G FR, CMP, VIDH, TSH, CBC, ADIFF, ANEU, MG #### [place] [address] #### B12 #### [place] [address] Bili Total 0.3 mg/dL Normal 0.2-1.0 [facility] ([place]) Comment on above: Result Comment: Use of this assay is not recommended for patients undergoing treatment with eltrombopag due to the potential for falsely elevated results. Performed By: #### G FR, CMP, VIDH, TSH, CBC, ADIFF, ANEU, MG #### [place] [address] #### B12 #### [place] [address] BUN/Creatinine Ratio 11 ratio Normal 7-27 [facility] ([place]) Comment on above: Performed By: #### G FR, CMP, VIDH, TSH, CBC, ADIFF, ANEU, MG #### [place] [address] #### B12 #### [address] [address] Calcium [Mass/Vol] 9.2 mg/dL Normal 8.4-10.2 [facility] ([place] Comment on above: Performed By: #### G FR, CMP, VIDH, TSH, CBC, ADIFF, ANEU, MG #### [address] [address] #### B12 #### [address] [address] Chloride [Moles/Vol] 101 mmol/L Normal 98-107 [facility] ([place] Comment on above: Performed By: #### G FR, CMP, VIDH, TSH, CBC, ADIFF, ANEU, MG #### [place] [address] #### B12 #### [address] [address] CO2 [Moles/Vol] 28 mmol/L Normal 22-29 [facility] ([place]) Comment on above: Performed By: #### G FR, CMP, VIDH, TSH, CBC, ADIFF, ANEU, MG #### [place] [address] #### B12 #### [place] [address] Creatinine [Mass/Vol] 0.82 mg/dL Normal 0.55-1.02 [facility] ([place]) Comment on above: Performed By: #### G FR, CMP, VIDH, TSH, CBC, ADIFF, ANEU, MG #### [place] [address] #### B12 #### [place] [address] Electrolyte Balance 7.0 mEq/L Normal 4.0-15.0 [facility] ([place]) Comment on above: Performed By: #### G FR, CMP, VIDH, TSH, CBC, ADIFF, ANEU, MG #### [place] [address] #### B12 #### [place] [address] Globulin 4.7 G/dL Normal [facility] ([place]) Comment on above: Performed By: #### G FR, CMP, VIDH, TSH, CBC, ADIFF, ANEU, MG #### [address] [address] #### B12 #### [address] [address] Glucose [Mass/Vol] 92 mg/dL Normal 70-105 [facility] ([place] Comment on above: Performed By: #### G FR, CMP, VIDH, TSH, CBC, ADIFF, ANEU, MG #### [address] [address] #### B12 #### [address] [address] Potassium [Moles/Vol] 4.8 mmol/L Normal 3.5-5.1 [facility] ([place] Comment on above: Performed By: #### G FR, CMP, VIDH, TSH, CBC, ADIFF, ANEU, MG #### [place] [address] #### B12 #### [address] [address] Sodium [Moles/Vol] 136 mmol/L Normal 136-145 [facility] ([place] Comment on above: Performed By: #### G FR, CMP, VIDH, TSH, CBC, ADIFF, ANEU, MG #### [address] [address] #### B12 #### [address] [address] Total Protein 8.8 G/dL High 6.4-8.2 [facility] ([place]) Comment on above: Performed By: #### G FR, CMP, VIDH, TSH, CBC, ADIFF, ANEU, MG #### [address] [address] #### B12 #### [address] [address] Urea nitrogen [Mass/Vol] 9 mg/dL Normal 7-18 [facility] ([place]) Comment on above: Performed By: #### G FR, CMP, VIDH, TSH, CBC, ADIFF, ANEU, MG #### [address] [address] #### B12 #### [place] [address] LABORATORYOrdered By: SYSTEM SYSTEM on 04-16-2022 Albumin BCP dye [Mass/Vol] 4.1 G/dL Invalid Interpretation Code 3.5 - 5.0 G/dL AO ADM SS Albumin/Globulin [Mass ratio] 0.9 {ratio} Invalid Interpretation Code 1.1 - 2.5 ratio AO ADM SS ALP [Catalytic activity/Vol] 63 U/L Invalid Interpretation Code 40 - 135 U/L AO ADM SS ALT With P-5'-P [Catalytic activity/Vol] 24 U/L Invalid Interpretation Code 14 - 59 U/L AO ADM SS AST With P-5'-P [Catalytic activity/Vol] 14 U/L Invalid Interpretation Code 10 - 40 U/L AO ADM SS Bilirubin [Mass/Vol] 0.3 mg/dL Invalid Interpretation Code 0.2 - 1.0 mg/dL AO ADM SS Calcium [Mass/Vol] 9.2 mg/dL Invalid Interpretation Code 8.4 - 10.2 mg/dL AO ADM SS Chloride [Moles/Vol] 101 mmol/L Invalid Interpretation Code 98 - 107 mmol/L AO ADM SS CO2 [Moles/Vol] 28 mmol/L Invalid Interpretation Code 22 - 29 mmol/L AO ADM SS Creatinine [Mass/Vol] 0.82 mg/dL Invalid Interpretation Code 0.55 - 1.02 mg/dL AO ADM SS Electrolyte Balance 7.0 mEq/L Invalid Interpretation Code 4.0 - 15.0 mEq/L AO ADM SS GFR 90 ml/min/1.73sqm Invalid Interpretation Code AO Chemistry S GFR Non- 74 ml/min/1.73sqm Invalid Interpretation Code AO Chemistry S Globulin 4.7 G/dL Invalid Interpretation Code AO ADM SS Glucose [Mass/Vol] 92 mg/dL Invalid Interpretation Code 70 - 105 mg/dL AO ADM SS Potassium [Moles/Vol] 4.8 mmol/L Invalid Interpretation Code 3.5 - 5.1 mmol/L AO ADM SS Protein [Mass/Vol] 8.8 G/dL Invalid Interpretation Code 6.4 - 8.2 G/dL AO ADM SS Sodium [Moles/Vol] 136 mmol/L Invalid Interpretation Code 136 - 145 mmol/L AO ADM SS TSH Qn 2.70 m[IU]/L Invalid Interpretation Code 0.36 - 3.74 mcIU/mL AO ADM SS Urea nitrogen [Mass/Vol] 9 mg/dL Invalid Interpretation Code 7 - 18 mg/dL AO ADM SS Urea nitrogen/Creatinine [Mass ratio] 11 ratio Invalid Interpretation Code 7 27 ratio AO ADM SS LABORATORYOrdered By: Ameena Domingo on 04-16-2022 Cholesterol [Mass/Vol] 216 mg/dL Invalid Interpretation Code 0 - 200 mg/dL AO ADM SS Cholesterol in HDL [Mass/Vol] 42 mg/dL Invalid Interpretation Code 40 - 60 mg/dL AO ADM SS Cholesterol in LDL [Mass/Vol] 142 mg/dL Invalid Interpretation Code 0 - 130 mg/dL AO ADM SS Triglyceride [Mass/Vol] 159 mg/dL Invalid Interpretation Code 0 - 150 mg/dL AO ADM SS LIPIDon 04-16-2022 Cholesterol [Mass/Vol] 216 mg/dL High 0-200 [facility] ([place]) Comment on above: Result Comment: Chol esterol Reference Interval: Less than 200 Desirable 200-239 Borderline high risk 240 and above High risk Performed By: #### G FR, CMP, VIDH, TSH, CBC, ADIFF, ANEU, MG #### [address] [address] #### B12 #### [address] [address] Cholesterol in HDL [Mass/Vol] 42 mg/dL Normal 40-60 [facility] ([place]) Comment on above: Performed By: #### G FR, CMP, VIDH, TSH, CBC, ADIFF, ANEU, MG #### [address] [address] #### B12 #### [address] [address] Cholesterol in LDL [Mass/Vol] 142 mg/dL High 0-130 [facility] ([place]) Comment on above: Performed By: #### G FR, CMP, VIDH, TSH, CBC, ADIFF, ANEU, MG #### [address] [address] #### B12 #### [address] [address] Triglyceride [Mass/Vol] 159 mg/dL High 0-150 [facility] ([place]) Comment on above: Result Comment: Trig lyceride Reference Interval: Less than 150 Normal 150-199 Borderline high risk 200-499 High risk 500 or higher Very high risk Performed By: #### G FR, CMP, VIDH, TSH, CBC, ADIFF, ANEU, MG #### [address] [address] #### B12 #### [place] [address] TSHon 04-16-2022 TSH Qn 2.70 m[IU]/L Normal 0.36-3.74 [facility] ([place]) Comment on above: Performed By: #### G FR, CMP, VIDH, TSH, CBC, ADIFF, ANEU, MG #### [address] [address] #### B12 #### [place] [address] Laboratory - Microbiology an d Antimicrobial susceptibilityon 03-09-2022 SARS-CoV-2 (COVID-19) RNA MITALI+probe Ql (Unsp spec) Not detected [facility] No Panel Informationon 03-09 Influenza Types A,B Rapid (Clinic) Detected [facility] Comment on above: POC RAMON FLU previou sly reported as NOT DETECTED FLU A&B LABORATORYOrdered By: Mirna Boyle on 10-15-2021 Albumin BCP dye [Mass/Vol] 4.2 G/dL Invalid Interpretation Code 3.5 - 5.0 G/dL AO ADM SS Albumin/Globulin [Mass ratio] 1.1 {ratio} Invalid Interpretation Code 1.1 - 2.5 ratio AO ADM SS ALP [Catalytic activity/Vol] 46 U/L Invalid Interpretation Code 40 - 135 U/L AO ADM SS ALT With P-5'-P [Catalytic activity/Vol] 27 U/L Invalid Interpretation Code 14 - 59 U/L AO ADM SS AST With P-5'-P [Catalytic activity/Vol] 15 U/L Invalid Interpretation Code 10 - 40 U/L AO ADM SS Bilirubin [Mass/Vol] 0.3 mg/dL Invalid Interpretation Code 0.2 - 1.0 mg/dL AO ADM SS Calcium [Mass/Vol] 9.1 mg/dL Invalid Interpretation Code 8.4 - 10.2 mg/dL AO ADM SS Chloride [Moles/Vol] 101 mmol/L Invalid Interpretation Code 98 - 107 mmol/L AO ADM SS Cholesterol [Mass/Vol] 232 mg/dL Invalid Interpretation Code 0 - 200 mg/dL AO ADM SS Cholesterol in HDL [Mass/Vol] 53 mg/dL Invalid Interpretation Code 40 - 60 mg/dL AO ADM SS Cholesterol in LDL [Mass/Vol] 146 mg/dL Invalid Interpretation Code 0 - 130 mg/dL AO ADM SS CO2 [Moles/Vol] 26 mmol/L Invalid Interpretation Code 22 - 29 mmol/L AO ADM SS Creatinine [Mass/Vol] 0.89 mg/dL Invalid Interpretation Code 0.55 - 1.02 mg/dL AO ADM SS Electrolyte Balance 8.0 mEq/L Invalid Interpretation Code 4.0 - 15.0 mEq/L AO ADM SS Globulin 3.7 G/dL Invalid Interpretation Code AO ADM SS Glucose [Mass/Vol] 96 mg/dL Invalid Interpretation Code 70 - 105 mg/dL AO ADM SS Potassium [Moles/Vol] 4.7 mmol/L Invalid Interpretation Code 3.5 - 5.1 mmol/L AO ADM SS Protein [Mass/Vol] 7.9 G/dL Invalid Interpretation Code 6.4 - 8.2 G/dL AO ADM SS Sodium [Moles/Vol] 135 mmol/L Invalid Interpretation Code 136 - 145 mmol/L AO ADM SS Triglyceride [Mass/Vol] 166 mg/dL Invalid Interpretation Code 0 - 150 mg/dL AO ADM SS TSH Qn 3.02 m[IU]/L Invalid Interpretation Code 0.36 - 3.74 mcIU/mL AO ADM SS Urea nitrogen [Mass/Vol] 11 mg/dL Invalid Interpretation Code 7 - 18 mg/dL AO ADM SS Urea nitrogen/Creatinine [Mass ratio] 12 ratio Invalid Interpretation Code 7 - 27 ratio AO ADM SS LABORATORYOrdered By: SYSTEM SYSTEM on 10-15-2021 GFR 82 ml/min/1.73sqm Invalid Interpretation Code AO Chemistry S GFR Non- 68 ml/min/1.73sqm Invalid Interpretation Code AO Chemistry S LABORATORYOrdered By: Shirley nails Britni on 10-15-2021 Hep C Ab Non-Reactive (10/15/21 8:59 AM) Invalid Interpretation Code Non-Reactive AH ADM SS Hep C Ab Int Nonreactive: Samples with a value < 0.80 are considered nonreactive (negative) for antibodies to HCV.A negative test result does not exclude the possibility of exposure to or infection with HCV. HCV antibodies may be undetectable in some stages of the infection and in some clinical conditions. Invalid Interpretation Code AH Chemistry S Cervical or vagninal specime n microscopic examination by cytology stain (reported ason 06-02-2021 Cytology report Cyto stain Doc (Cvx/Vag) Comment [facility] Work Phone: Comment on above: The Pap smear is a s creening test designed to aid in thedetection of premalignant and malignant conditions of theuterine cervix. It is not a diagnostic procedure andshould not be used as the sole means of detecting cervicalcancer. Both false-positive and false-negative reports dooccur. Detection in cervical specim en of any of human papilloma virus (HPV) 16, 18, 31, 33,on 06-02-2021 HPV 16+18+31+33+35+39+45+5 1+52+56+58+59+66+68 DNA Probe+sig amp Ql (Cvx) Negative Negative [facility] Work Phone: Comment on above: This nucleic acid am plification test detects fourteen high- risk HPV types (16,18,31,33,35,39,45,51,52,56,58,59,66,68)without differentiation.Performed at: [facility] - [facility] [id number] Director: Cristina Hoyt MD, Phone: [phone] at: =G - [facility] [address] [id number] Director: Cristina Hoyt MD, Phone: [phone] Laboratory - Cytologyon 05-19 Vice President Of Procurement Cyto stain Nom (Cvx/Vag) [ID] Comment [facility] Work Phone: Comment on above: Yefri Molina Supervisor [employer] (ASCP) Laboratory - Miscellaneous t estson 06-02-2021 Service comment (Unsp spec) [Interp] Comment [facility] Work Phone: Comment on above: This liquid based Th inPrep(R) pap test was screened withthe use of an image guided system. Service comment (Unsp spec) [Interp] . [facility] Work Phone: No Panel Informationon 06-02 Pathology report final diagnosis Narrative Comment [facility] Work Phone: Comment on above: NEGATIVE FOR INTRAEP ITHELIAL LESION OR MALIGNANCY.CELLULAR CHANGES ASSOCIATED WITH INFLAMMATION ARE PRESENT. Vital Signs Date Time Vital Sign Value Performing Clinician Faci lity 01-06-2023 08:42-0400 Body temperature 98.5 [degF] Dr. Blossom Moncada Work Phone: [facility] 01-06-2023 08:42-0400 Diastolic blood pressure 60 mm[Hg] Dr. Blossom Moncada Work Phone: [facility] 01-06-2023 08:42-0400 Heart rate 74 /min Dr. Blossom Moncada Work Phone: [facility] 01-06-2023 08:42-0400 Respiratory rate 16 /min Dr. Blossom Moncada Work Phone: [facility] 01-06-2023 08:42-0400 SaO2% (BldA) [Mass fraction] 98 % Dr. Blossom Moncada Work Phone: [facility] 01-06-2023 08:42-0400 Systolic blood pressure 101 mm[Hg] Dr. Blossom Moncada Work Phone: [facility] 01-06-2023 07:16-0400 Body height 157.[address] Blossom Moncada Work Phone: [facility] 01-06-2023 07:16-0400 Body mass index (BMI) [Ratio] 33.3 kg/m2 Dr. Blossom Moncada Work Phone: [facility] 01-06-2023 07:16-0400 Body weight 82.[address] Blossom Moncada Work Phone: [facility] 10-28-2022 14:54-0400 Body mass index (BMI) [Ratio] 33.8 kg/m2 Dr. Blossom Moncada Work Phone: [facility] 10-28-2022 14:54-0400 Body weight 83.[address] Blossom Moncada Work Phone: [facility] 03-09-2022 17:12-0500 Body height 163.[address] Blossom Moncada Work Phone: [facility] 03-09-2022 17:12-0500 Body mass index (BMI) [Ratio] 31.5 kg/m2 Dr. Blossom Moncada Work Phone: [facility] 03-09-2022 17:12-0500 Body temperature 99.5 [degF] Dr. Blossom Moncada Work Phone: [facility] 03-09-2022 17:12-0500 Body weight 84.[address] Blossom Moncada Work Phone: [facility] 03-09-2022 17:12-0500 Diastolic blood pressure 80 mm[Hg] Dr. Blossom Moncada Work Phone: [facility] 03-09-2022 17:12-0500 Heart rate 126 /min Dr. Blossom Moncada Work Phone: [facility] 03-09-2022 17:12-0500 Respiratory rate 20 /min Dr. Blossom Moncada Work Phone: [facility] 03-09-2022 17:12-0500 SaO2% (BldA) [Mass fraction] 96 % Dr. Blossom Moncada Work Phone: [facility] 03-09-2022 17:12-0500 Systolic blood pressure 110 mm[Hg] Dr. Blossom Moncada Work Phone: [facility] Encounters Encounter Date Encounter Type Care Provider Facility Start: 12-06-2024 ambulatory Mary Anne Dobson lity:[facility]BE[facility] Start: 12-03-2024 End: 12-03-2024 ambulatory BLOSSOM MONCADA DO [facility] Start: 12-03-2024 End: 12-03-2024 Patient encounter procedure BLOSSOM MONCADA DO [facility] Start: 11-26-2024 End: 11-26-[address] Blossom Moncada DO Work Phone: -[facility]trasound [facility] Start: 11-26-2024 End: 11-26-[address] Mary Anne Bravo MD -Ultrasound [facility] Work Phone: Start: 11-26-2024 End: 11-26-2024 ambulatory Mary Anne Bravo Facility:[facility] Start: 07-16-2024 End: 07-16-2024 Patient encounter status [address] Work Phone: Start: 07-16-2024 End: 07-16-2024 Subsequent hospital visit by physician [address] Comment on above: Encounter for genera l adult medical examination without abnormal findings Start: 07-16-2024 End: 07-16-2024 ambulatory BLOSSOM VIKAS [facility] Start: 07-16-2024 End: 07-16-2024 Encounter for general adult medical examination without abnormal findings BLOSSOM [facility] Start: 05-25-2024 End: 05-25-2024 ambulatory BLOSSOM MONCADA DO [facility] Start: 12-07-2023 End: 12-07-2023 ambulatory BLOSSOM MONCADA DO [facility] Start: 12-07-2023 End: 12-07-2023 Patient encounter procedure BLOSSOM MONCADA DO [facility] Start: 02-23-2023 End: 02-24-2023 ambulatory BLOSSOM MONCADA DO Facility:B Start: 01-06-2023 Non-patient / Non-visit Dr. Jaren Moncada Work Phone: [facility] Start: 01-06-2023 End: 01-06-2023 Admission to same day surgery center Dr. Blossom Moncada Work Phone: [facility] Work Phone: Start: 01-06-2023 End: 01-06-[address] Blossom Moncada Work Phone: [facility] Work Phone: Start: 11-12-2022 End: 02-07-2023 ambulatory BLOSSOM MONCADA DO Facility:[facility] Start: 10-28-2022 Non-patient / Non-visit Dr. Jaren Moncada Work Phone: [facility] Work Phone: Start: 10-22-2022 End: 10-23-2022 ambulatory BLOSSOM MONCADA DO Facility:[facility] Start: 08-30-2022 End: 08-31-2022 ambulatory BLOSSOM MONCADA DO Facility:[facility] Start: 07-08-2022 End: 07-08-2022 ambulatory [facility] Work Phone: Start: 07-08-2022 End: 07-08-2022 Patient encounter procedure [facility] Start: 06-29-2022 End: 06-29-[address] Blossom Moncada Work Phone: [facility] Work Phone: Start: 06-29-2022 End: 06-29-[address] Blossom Moncada Work Phone: [facility], Specimen Start: 04-16-2022 End: 04-17-2022 ambulatory BLOSSOM MONCADA DO Facility:B Start: 04-16-2022 End: 04-16-2022 Patient encounter procedure BLOSSOM MONCADA DO [facility] Start: 03-09-2022 End: 03-09-[address] Blossom Moncada Work Phone: [facility] Start: 10-15-2021 End: 10-15-2021 Patient encounter procedure BLOSSOM MONCADA DO [facility] Start: 06-02-2021 End: 06-02-2021 Patient encounter procedure [facility] Specimen Start: 04-27-2021 End: 04-27-2021 Patient encounter procedure [facility] Procedures Date Procedure Procedure Detail Performing Clinician Start: 11-26-[address] Alexis Moncada DO Work Phone: Start: 01-06-2023 End: 01-06-[address] Blossom Moncada Work Phone: Start: 01-06-2023 Colonoscopy BLOSSOM ABDULLAHI DO Start: 07-08-2022 Screening mammography Start: 04-27-2021 Screening mammography Start: 10-04-2004 Operation on nose FRANCOISE IN [place] DO Comment on above: Closed reduction jus al bone fracture w/ external stabilization. Plan of Treatment Date Care Activity Detail Author Start: 01-06-2033 Screening for malign ant neoplasm of colon [facility] Start: 02-17-2028 DTaP/Tdap/Td Vaccine s (2 - Td or Tdap) DTaP/Tdap/Td Vaccines (2 - Td or Tdap) [facility] Start: 11-19-2024 Influenza vaccination Influenz a Vaccine (Season Ended) [facility] Start: 12-30-2023 Pneumococcal vaccination Pneumococcal Vaccine (1 of - PCV) [facility] Start: 11-20-2023 COVID-19 Vaccine ( season) COVID-19 Vaccine ( season) [facility] Start: 01-06-2023 Urine test [facility] Start: 01-06-2023 Patient discharge [facility] Start: 2013 Screening for malign ant neoplasm of breast Mammogram [facility] Start: 1994 Screening for malign ant neoplasm of cervix [facility] Start: 1992 Hepatitis B Vaccines (1 of 3 - 19+ 3-dose series) Hepatitis B Vaccines (1 of 3 - 19+ 3-dose series) [facility] Start: 12-30-1991 Hepatitis C screening Hepatitis C Sc reening [facility] Start: 1974 MMR Vaccines (1 of 1 - Standard series) MMR Vaccines (1 of 1 - Standard series) [facility] Start: 1973 HIV screening HIV Screening [facility] Start: 1973 Lipid panel Lipid Panel [facility] Start: 1973 Screening for malign ant neoplasm of colon [facility] Start: 1973 Yearly Adult Physical Yearly Adult P hysical [facility] Colonoscopy [facility] End: 07-16-2024 CT for calcium scoring WO contrast and CTA W contrast IV Heart and coronary arteries [facility] Service Area Work Phone: Comment on above: Once for 1 Occurrenc es starting 07/16/2024 until 07/16/2024 Path report.final Dx Spec [facility] Patient referral [facility] Work Phone: [facility] Immunizations Immunization Date Immunization Notes Care Provider Jw curtis 05-25-2024 zoster vaccine recombinant; Translations: [Shingrix] BLOSSOM MONCADA DO [facility] 02-24-2024 zoster vaccine recombinant; Translations: [Shingrix] BLOSSOM MONCADA DO [facility] 02-16-2018 tetanus toxoid, redu sepideh diphtheria toxoid, and acellular pertussis vaccine, adsorbed BLOSSMO MONCADA DO [facility] Payers Date Payer Category Payer Private Health Insurance [id number] 2024 Self-pay [id number] 2014 Blue Cross Blue Shie ld Managed Care [facility] [id number] 2014 Unknown [id number] 1973 Unknown [id number] 1973 Unknown [id number] [id number] 1973 Unknown [id number]. [id number] 1973 Unknown [id number]. [id number] 1973 Unknown [id number] [id number] 1973 Unknown [id number] 1973 Unknown [id number] [id number] 1973 Unknown [id number]. [id number] 1973 Unknown [id number] [id number] Unknown [id number] [id number] Unknown [id number] [id number] Social History Date Type Detail Facility Tobacco smoking status NHIS Unknown if ever smoked [facility] Work Phone: Start: 1975 Sex Assigned At Female [facility] Start: 10-14-2020 End: 05-25-2024 Tobacco smoking status Never smoked tobacco (finding) [facility] Sex Assigned At [facility] Start: 01-03-2023 Tobacco smoking status NHIS Unknown if ever smoked [facility] Start: 07-16-2024 Gender identity Identifies as female gender (finding) [facility] Work Phone: Start: 07-16-2024 Sexual orientation Heterosexual (fin ding) [facility] Work Phone: Start: 07-06-2024 End: 07-16-2024 Exposure to SARS-CoV-2 (event) Not sure [facility] Work Phone: Start: 06-14-2014 Sex Female (finding) [facility] NEGATED: Highlighted row [facility] Goals Date Patient Goal Desired Activity /State Mental Status Date Assessment Result Facility 01-06-2023 Cognitive function Voice/Name [facility] Work Phone: Clinical Notes 06-02-2021 to 11-27-2024 RadiologyRadiology Note Date & Type Note Facility 11-27-2024 Radiology Diagnostic study note [facility] Imaging Services [address] [place] [address] Pelvic w/ Transvaginal MR#: [id number] Acct: [id number] Name: JOHNSON CARRASCO Rep #: [id number] : 1975 F 48 From: Malcom Shaffer MD PCP: Dr. Blossom Moncada, Status: REG CLI Study:Pelvic w/ Transvaginal Date of Exam: 11/26/24 Exam# [id number] Ordering Dr: Mary Anne Quintanilla MD PROCEDURE: PELVIC W/ TRANSVAGINAL REASON FOR EXAM: VAGINAL BLEEDING TECHNIQUE: Procedure Code: [id number] Modality: US Procedure: PELVIC W/ TRANSVAGINAL COMPARISON: None FINDINGS: LMP: November 11, 2024. Measurements: Uterus: 8.4 cm x 5.4 cm x 4.5 cm with a volume of 105.1 mL Endometrial Thickness: 5 mm. It is fluid-filled. Questionable polyp within theendometrium measuring 7 mm x 8 mm x 6 mm. Right Ovary: 3.5 cm x 2.4 cm x 2.1 cm with a volume of 8.53 mL. Left Ovary: 2.2 cm x 2.1 cm x 2 cm with a volume of 6.27 mL. TRANSABDOMINAL: Uterus: There is an 8 mm x 8 mm x 4 mm fundal fibroid. Endometrium: Fluid-filled. Findings suggestive of a 7 mm x 8 mm x 6 mm polyp. Right ovary: A dominant follicle is seen within the right ovary measuring 1.5 cmx 1.6 cm 1.5 cm. Left ovary: Normal size and echotexture. Other: No large pelvic mass identified. Transvaginal sonography was performed as transabdominal imaging did not explain the patient's presenting symptoms. TRANSVAGINAL: Uterus: Anteverted. Small fundal fibroid. Endometrium: Fluid-filled endometrium measuring 5 mm. Findings suggestive of a 7 mm x 8 mm x 6 mm polyp. Right ovary: Small follicle. Left ovary: Normal size and echotexture. Other adnexal findings: None. Cul-de-sac: No free intraperitoneal fluid identified. Tenderness: No tenderness US/Pelvic w/ Transvaginal IMPRESSION: Small uterine fibroid. Findings suggestive of a 7 mm x 8 mm x 6 mm endometrial polyp. Reading Location: [facility] CC: Dr. Blossom Moncada DO; Dr. Mary Anne Bravo MD ~ Air Dispatcher: Signed [facility] 01-06-2023 Procedure note [facility] 01-06-2023 Procedure note [facility] 06-29-2022 Note [facility] Pap Smear Specimen Adequacy June 29, 2022 11:45am Comment . Satisfactory for evaluation. Endocervical and/or squamous metaplasticcells (endocervical component) are present. Comment on above: Satisfactory for natalie luation. Endocervical and/or squamous metaplasticcells (endocervical component) are present. 06-02-2021 Note [facility] Work Phone: Pap Smear Specimen Adequacy June 02, 2021 11:45am Comment Satisfactory for evaluation. Endocervical and/or squamous metaplasticcells (endocervical component) are present. Comment on above: Satisfactory for natalie luation. Endocervical and/or squamous metaplasticcells (endocervical component) are present. Evaluation + Plan note Future Appointments Appointment Date:12/16/2021 08:30:00 AM Scheduled Provider:BLOSSOM MONCADA DO Location:[facility] Appointment Type:[facility] Evaluation + Plan note Future Appointments Appointment Date:10/22/2022 08:30:00 AM Scheduled Provider:BLOSSOM MONCADA DO Location:[facility] Appointment Type: Wellness Annual [facility] Evaluation + Plan note Future Appointments Appointment Date:12/09/2023 08:00:00 AM Scheduled Provider:BLOSSOM MONCADA DO Location:[facility] Appointment Type: Wellness Annual Future Scheduled TestsMA Mammogram Screening Bilateral Routine w/o Travis 07/06/23 [facility] Evaluation + Plan note Future Appointments Appointment Date:12/04/2024 07:30:00 AM Scheduled Provider:BLOSSOM MONCADA DO Location:[facility] Appointment Type: Wellness Annual Future Scheduled TestsCT Coronary Calcium Score w/o Contrast 05/25/24 [facility] Evaluation note No assessment information availa ble [facility] Work Phone: Evaluation note Diagnosis Onset Date Influenza due to influenza v irus, type A, human acute [facility] Work Phone: Evaluation note* Diagnosis Onset Date Resolution Status Encounter for screening for malignant neoplasm of colo n [facility] Work Phone: Evaluation note* Diagnosis Encounter for general adult medical examination without abnormal findings documented in this encounter [facility] Work Phone: History and physical note Author Narciso Garcia [facility] January 06, 2023 7:24am Note Date/Time January 06, 2023 7 :24am [facility] Medical Records Department [address] [place] [address] History & Physical Exam 01/06/23 0723 MR#: [id number] Acct: [id number] Name: JOHNSON CARRASCO Rep #:[id number] : 1975 47 From: Narciso Garcia DO PCP: Dr. Blossom Moncada, DO Status:[facility] Location: [place] [address] HPI - General General Date of Admission: 01/06/23 Date of Service: 01/06/23 Chief Complaint: Screening colonoscopy HPI Narrative JOHNSON CARRASCO, is a 47 F who presents today for screening colonoscopy. She has never had a colonoscopy in the past. She is not having abdominal pain. Does not have any nausea, vomiting or diarrhea. She does not have any chest pain or shortness of breath. Overall she is in very good health. COUNTS INCLUDE 234 BEDS AT THE [facility] Medical History (Updated 01/03/23 @ 17:30 by Rhona Huggins) Alcohol use Anxiety Depression High cholesterol History of broken nose Migraine headache Non-smoker Restless legs Seasonal allergies Wears contact lenses Home Medications escitalopram oxalate 5 mg tablet (Lexapro) 20 mg PO DAILY 03/09/22 [History Last Taken Unknown] cetirizine 10 mg tablet (Zyrtec) 10 mg PO DAILY 10/28/22 [History Last Taken Unknown] collagen 500 mg PO DAILY 01/03/23 [History Last Taken Unknown] Allergy/AdvReac Type Severity Reaction Status Date / Time amoxicillin [From Augmentin] Allergy Hives Verified 01/03/23 17:19 clavulanic acid Allergy Hives Verified 01/03/23 17:19 [From Augmentin] Social History (Updated 10/28/22 @ 14:48 by Latonia Ledesma) household members: spouse current occupational status: employed Smoking Status: Never smoker ROS Review of Systems ROS Unobtainable: other Constitutional Constitutional: Denies fatigue, fever(s), poor appetite, weight gain or weight loss ENT HEENT: Denies mouth lesions Cardiovascular Cardiovascular: Denies abdominal bloating, abdominal edema or abdominal pain Respiratory/Chest Respiratory/Chest: Denies change in mental status, change in phlegm color, chestcongestion or chest tightness Gastrointestinal Gastrointestinal: Denies belching, bloating, change in bowel habits, change in stool character, chewing difficulty, coffee ground emesis, constipation, cramping, diarrhea, dyspepsia, dysphagia, early satiety, excessive flatus, fecal incontinence, heartburn, hematemesis, hematochezia, hemorrhoids, loose stools, melena, nausea, odynophagia, rectal bleeding, tenesmus, vomiting or weight changes Genitourinary Genitourinary: Denies abdominal discomfort, burning urination or itching Musculoskeletal Musculoskeletal: Reports as per HPI; Denies muscle weakness or myalgias Integumentary Integumentary: Denies jaundice Neurologic Neurologic: Denies lack of coordination or weakness Psychiatric Psychiatric: Denies confusion, depression, memory loss, mood swings, paranoia orsuicidal ideation Endocrine Endocrinology: Denies systems reviewed and no addt'l complaints, except as documented Hematologic/Lymphatic Hematologic/Lymphatic: Denies anemia, easy bleeding, easy bruising or lymphadenopathy Allergic/Immunologic Allergic/Immunologic: Denies systems reviewed and no addt'l complaints, except as documented Vital Signs Vital Signs Vital Signs: 01/06/23 07:16 01/06/23 07:16 Temperature 96.4 F L Temperature Source Temporal Pulse Rate 98 Respiratory Rate 18 Respiratory Pattern Normal Blood Pressure 106/71 Blood Pressure Mean 82 Blood Pressure Source Monitor Blood Pressure Position Semi-Fowlers Blood Pressure Location Right Arm Pulse Ox 98 Oxygen Delivery Method Room Air Weight Weight: 182 lb Body Mass Index (BMI) 33.3 Physical Exam Const alert General Appearance: cooperative Orientation / Consciousness: oriented to person HEENT hearing grossly normal bilaterally Head and Scalp: normal to inspection Face and Sinus: face symmetric Nose: external nose normal Mouth: oral and palatal mucosa normal Eyes conjunctivae normal General Eye: normal appearance of both eyes Neck full ROM General: normal visual inspection Lymph Lymphatic: no lymphadenopathy noted Chest inspection of chest normal and palpation of chest normal Chest: symmetrical chest wall rise Resp normal respiratory effort Effort and Inspection: able to speak in complete sentences Cardio regular rate GI non-distended Percussion: normal to percussion Rectal Exam: deferred Neuro Speech: speech normal Gait (Neuro): normal gait Assessment & Plan Assessment/Plan (1) Encounter for screening for malignant neoplasm of colon: PLAN: She was explained alternatives, risk, benefits include not withstanding bleeding, infection, sepsis, perforation, need for emergent surgery . She will have an ASA of 2. 01/06/23 0724 <Electronically signed by Narciso Garcia DO> Cosigner Signature (if applicable): CC: Dr. Blossom Moncada DO; Narciso Garcia DO~ Signed [facility] Work Phone: Hospital course Narrative No data available for this section [facility] Discharge instructions No data available for this section [facility] Progress note No data available for this section [facility] Reason for referral (narrative)No reason for referral information [facility] Work Phone: Reason for visit Narrative* Imaging (Routine) - Pending Review Specialty Diagnoses / Procedures Referred By Contac t Referred To Contact Radiology Diagnoses Encounter for general adult medical examination without abnormal findings Procedures CT cardiac scoring wo IV contrast Blossom Moncada DO [address] [place] [address] Phone: tel: fax: Referral ID Status Reason Start Date Expiration Date Visits Requested Visits Authorized [id number] Pending Review Perform Procedure 06/05/2024 06/05/2025 1 1 [facility] Work Phone: Chief Complaint and Reason for Visit Chief Complaint SCREENING Chief Complaint CONCERN FOR FLU Reason for Visit Influenza due to inf luenza virus, type A, human Chief Complaint Amb Documentation Reason for Visit Encounter for screen ing for malignant neoplasm of colon Chief Complaint Admit Date Abnormal uterine and vaginal bleeding, u nspecified November 26, 2024 4:19pm Advance Directives No Advanced Directives Records Found Advance Directive Response Recorded Date/ Time Living Will No January 03 5:22pm Power of Buzzle Buffer No January 03, 2023 5:22pm Summary Purpose Family History No Family History Records Found Relationship Condition Age at Onset Recorded Date/T jovanni sister Malignant neoplasm of breast 42 mother Coronary artery disease Unknown Chronic obstructive pulmonary disease Unk nown Hypertension Unknown Blood clot in leg Unknown grandmother Coronary artery disease Unknown Cardiac disease Unknown Myocardial infarction Unknown Additional Source Comments Goals (unrecognized section and content) Goals may be documented in a n alternate section No data available for this section No data available for this sectionGoals may be documented in an alternate sectionGoals may be documented in an alternate section No data available for this sectionGoals may be documented in an alternate section No data available for this section Care Team (unrecognized sect ion and content) Care Team Personnel Name: ARACELIS HUNT Member Role: Treating And Pumping Supervisor Name: BLOSSOM MONCADA DO Position: P4 Physician - Primary Care Med Service: Active Provider Member Role: Primary Care Physician Address: Address: [address] [place] [id number] [place] [address] Name: KANDI ROJAS DO Member Role: OBGYN Address: Address: [address] [place] [id number] Name: WELSEY AMOS Member Role: Dentist Care Team Related Persons Name: JENNIFER MICHELLE Jaxson Address: Home [address] [place] [phone] Address: Temporary [address] [place] [phone] Care Team Personnel Name: ARACELIS HUNT Member Role: Treating And Pumping Supervisor Name: BLOSSOM MONCADA DO Position: P4 Physician - Primary Care Member Role: Primary Care Physician Address: Address: [address] [place] [phone] [place] [address] Name: KANDI ROJAS DO Member Role: OBMIKHAIL Address: Address: [address] [place] [id number] Name: AMOS WESLEY Member Role: Dentist Care Team Related Persons Name: MICHELLE CARRASCO Address: Home [address] [place] [phone] Address: Temporary [address] [place] [phone] Care Teams (unrecognized sec tion and content) Team Status: Active Member Role Status Dates Dr. Blossom Moncada DO Family Provider Active Dr. Blossom Moncada DO Primary Care Provider Active Team Status: Inactive Member Role Status Dates Dr. Blossom Moncada DO Primary Care Provider, Referri ng Provider Active Yosef CORDERO, PA Attending Provider Active Team Status: Inactive Member Role Status Dates Dr. Blossom Moncada DO Primary Care Provider Active Dr. Kandi Rojas DO Attending Provider Active Team Status: Inactive Member Role Status Dates Dr. Blossom Moncada DO Primary Care Provider Active Dr. Kandi Rojas DO Attending Provider, Referrin g Provider Active Team Status: Active Member Role Status Dates Dr. Blossom Moncada DO Primary Care Provider Active Latonia Ledesma Attending Provider Active Team Status: Active Member Role Status Dates Dr. Blossom Moncada DO Primary Care Provider, Referri ng Provider Active Dr. Narciso Garcia DO Attending Provider, Other Prov ider Active Team Status: Inactive Member Role Status Dates Dr. Blossom Moncada DO Primary Care Provider, Referri ng Provider Active Dr. Narciso Garcia DO Attending Provider Active Family Preservation Officer Relationship Specialty Start Date End Date Blossom Moncada DO 0 [facility] [place] [address] PCP - General Family Medicine 07/16/24 Team Status: Active Member Role/Relationship Status Dates Dr. Blossom Moncada DO Primary Care Provider Active Team Status: Inactive Member Role/Relationship Status Dates Dr. Blossom Moncada DO Primary Care Provider Active Start: November 26, 2024 End: November 26, 2024 Dr. Mary Anne Bravo MD Attending Provider Active Start: November 26, 2024 End: November 26, 2024 Dr. Mary Anne Bravo MD Referring Provider Active Start: November 26, 2024 End: November 26, 2024 INFORMATION SOURCE (unrecogn ized section and content) DATE CREATED AUTHOR 02/25/2023 [facility] ([place]) DATE CREATED AUTHOR AUTHOR'S ORGANIZ ATION 07/26/2024 [facility] DATE CREATED AUTHOR AUTHOR'S ORGANIZ ATION 12/03/2024 [facility] DATE CREATED AUTHOR AUTHOR'S ORGANIZ ATION 12/05/2024 [facility] FOR RECORDS PERTAINING TO PATIENTS WHO ARE OR HAVE BEEN ENROLLED IN A CHEMICAL DEPENDENCY/SUBSTANCEABUSE PROGRAM, SOME INFORMATION MAY BE OMITTED. This clinical summary was aggregated from multiple sources. Caution should be exercised in using it in the provision of clinical care. This summary normalizes information from multiple sources, and as a consequence, information in this document may materially change the coding, format and clinical context of patient data. In addition, data may be omitted in some cases. CLINICAL DECISIONS SHOULD BE BASED ON THE PRIMARY CLINICAL RECORDS. [employer] [facility]. provides no warranty or guarantee of the accuracy or completeness of information in this document.
== END | disposition home or self-care (01) ==
PROVIDERS: PCP Family Medicine; Referring Provider Obstetrics & Gynecology; Visit Provider Obstetrics & Gynecology
DX: N93.9 Abnormal uterine and vaginal bleeding, unspecified (principal)
CPT/HCPCS: 36415; 84443; 85025

== ENCOUNTER → 2024-12-06 | Outpatient (CLI) | payer BC, SELFPAY ==
[2024-12-11 17:08] LABS: HPV APTIMA, High Risk Negative (Negative)
== END | disposition home or self-care (01) ==
LOC: LABSPEC 10:00
PROVIDERS: PCP Family Medicine; Referring Provider Obstetrics & Gynecology; Visit Provider Obstetrics & Gynecology
DX: Z12.4 Encounter for screening for malignant neoplasm of cervix (principal)
CPT/HCPCS: 87624; 88175; G0145

== ENCOUNTER → 2024-12-12 | Outpatient (CLI) | payer BC, SELFPAY ==
--- NOTE | 2024-12-12 15:15 | BI_ITS ---
EXAM: SCRN MAMM (CAD)W/MCKINLEY BILAT DATE: 12/12/2024 CLINICAL HISTORY: F, Age 48 y/o , SCREENING MAMMOGRAM TECHNIQUE: Procedure Code: [id number] Modality: MG Procedure: SCRN MAMM (CAD)W/MCKINLEY BILAT COMPARISON: Prior exam(s) were compared FINDINGS: TISSUE DENSITY: There are scattered areas of fibroglandular density.. Bilateral Breast Mammographic Findings: No significant masses, calcifications or other abnormalities are identified. BI/SCRN MAMM (CAD)W/MCKINLEY BILAT IMPRESSION: No mammographic evidence of malignancy in either breast. OVERALL FINAL ASSESSMENT BI-RADS 1: NEGATIVE. RECOMMENDATION: Routine annual follow-up in 1 Year Additional Recommendation none A letter with findings and recommendations will be mailed to the patient. Reading Location: [id number]
== END | disposition home or self-care (01) ==
LOC: OPBI 15:06
PROVIDERS: PCP Family Medicine; Referring Provider Obstetrics & Gynecology; Visit Provider Obstetrics & Gynecology
DX: Z12.31 Encounter for screening mammogram for malignant neoplasm of breast (principal)
CPT/HCPCS: 77063; 77067

== ENCOUNTER 2024-12-25 11:53 | Day surgery (SDC) | payer BC, SELFPAY ==
--- NOTE | 2024-12-24 16:34 | PCM.HP.OB ---
HPI - General General Date of Admission: 12/25/24 HPI Narrative JOHNSON RODRIGUEZ, is a 48 F who presents with AUB heavy and irregular, some crmaping. polyp seen on ultrasound. Uterus: 8.4 cm x 5.4 cm x 4.5 cm with a volume of 105.1 mL Endometrial Thickness: 5 mm. It is fluid-filled. Questionable polyp within the endometrium measuring 7 mm x 8 mm x 6 mm. Right Ovary: 3.5 cm x 2.4 cm x 2.1 cm with a volume of 8.53 mL. Left Ovary: 2.2 cm x 2.1 cm x 2 cm with a volume of 6.27 mL. [facility] Medical History (Updated 12/24/24 @ 16:[address] Mary Anne Bravo MD) Arthritis Fatty liver Back pain Injury of head and neck Shortness of breath on exertion History of edema Wears contact lenses Anxiety Depression Alcohol use High cholesterol Restless legs Migraine headache Non-smoker History of broken nose Home Medications ?Medication ?Instructions ?Recorded ?Last Taken ?Type escitalopram oxalate 5 mg tablet 20 mg PO DAILY 03/09/22 Unknown History (Lexapro) cetirizine 10 mg tablet (Zyrtec) 10 mg PO DAILY 10/28/22 Unknown History ergocalciferol (vitamin D2) 1,250 1,250 mcg PO TUTH 11/14/23 Unknown History mcg (50,000 unit) capsule lactobacillus combination no.4 3 3,000 mmu cells PO DAILY 11/14/23 Unknown History billion cell capsule (Probiotic) mecobalamin (vitamin B12) 1,000 1,000 mcg PO DAILY 11/14/23 Unknown History mcg lozenges rosuvastatin 10 mg tablet 10 mg PO QHS 11/14/23 Unknown History aripiprazole 2 mg tablet (Abilify) 2 mg PO QHS 12/06/24 Unknown History Allergy/AdvReac Type Severity Reaction Status Date / Time amoxicillin (From Augmentin) Allergy Hives Verified 12/18/24 12:55 clavulanic acid (From Allergy Hives Verified 12/18/24 12:55 Augmentin) Family History Sister Breast cancer, Onset Age: 42 Mother CAD (coronary artery disease) COPD (chronic obstructive pulmonary disease) Hypertension Blood clot in leg Grandmother CAD (coronary artery disease) Heart disease Myocardial infarction Surgical History Hx of colonoscopy Hx of wisdom tooth extraction Social History adopted: No household members: spouse current occupational status: employed current occupation: [employer] current occupational exposures/hazards: No sexually active: Yes Smoking Status: Never smoker alcohol intake: current substance use type: does not use seatbelt use: always do you feel safe at home: Yes additional social history: [employer] - outside sale 2 step sons - Yannick and Jhon History 0 Elective abortions Hx Para Spontaneous abortions Hx # Term Pregnancies Ectopic pregnancies Hx # Pregnancies Multiple births # of living children 0 Past Pregnancies Del. Date Name GA/Weeks Outcome Route Bth Weight Infant Gen Labor Lgth Anesthesia Del Locatn Provider FOB Unknown 2 STEP SONS ROS Constitutional Constitutional: Reports systems reviewed and no addt'l complaints, except as documented; Denies as per HPI, change in weight, fatigue, fever(s), malaise, weakness or other Eyes Eyes: Reports systems reviewed and no addt'l complaints, except as documented; Denies as per HPI, change in vision or other ENT HEENT: Reports systems reviewed and no addt'l complaints, except as documented Respiratory/Chest Respiratory/Chest: Reports systems reviewed and no addt'l complaints, except as documented Gastrointestinal Gastrointestinal: Reports systems reviewed and no addt'l complaints, except as documented and as per HPI Genitourinary Genitourinary: Reports as per HPI Musculoskeletal Musculoskeletal: Reports systems reviewed and no addt'l complaints, except as documented Neurologic Neurologic: Reports systems reviewed and no addt'l complaints, except as documented Psychiatric Psychiatric: Reports systems reviewed and no addt'l complaints, except as documented Endocrine Endocrinology: Reports systems reviewed and no addt'l complaints, except as documented Hematologic/Lymphatic Hematologic/Lymphatic: Reports systems reviewed and no addt'l complaints, except as documented Physical Exam Const alert, oriented x3 and no apparent distress HEENT normocephalic Head and Scalp: atraumatic Eyes EOMs intact bilaterally and conjunctivae normal Neck full ROM, no lymphadenopathy, supple and thyroid normal General: trachea midline Lymph Lymphatic: no lymphadenopathy noted Resp normal respiratory effort, no retractions, no use of accessory muscles and clear to auscultation bilaterally Cardio regular rhythm GI normal to inspection, nondistended, normoactive bowel sounds, soft to palpation, non-distended and no masses Inspection: Negative for abdominal distention Back/Spine no CVA tenderness Extremity normal to inspection Skin no rashes or lesions noted Neuro moves all extremities and deep tendon reflexes 2+ bilaterally Psych mental status grossly normal Labs Labs Labs: Hct, (37-47) 37.7 % Hgb, (12.0-15.0) 12.3 g/dL Chlamydia DNA (MITALI), (Negative) Negative N.gonorrhoeae DNA (MITALI), (Negative) Negative Assessment & Plan (1) Abnormal uterine bleeding: COMMENT: plan d and c hysteroscopy polypectomy possible dustin ablation PLAN: Plan After discussing the patient's diagnosis and treatment plan options, patient wishes to proceed with surgical management. I have discussed with the patient the risks, benefits, and alternatives of the procedure which include but are not limited to risks of anesthesia, bleeding, infection, possible damage to bowel, bladder, or surrounding vasculature which could lead to additional surgery to evaluate any complications. Patient agrees to procedure and wishes to proceed. ACOG/uptodate references given for additional information regarding procedure.
[2024-12-25] VITALS (7 sets, daily range): BP systolic 95–117; BP diastolic 71–83; PULSE 77–95; RESP 14–18; TEMP 36.2–36.4; O2SAT 88–97; BMI 36.3
--- NOTE | 2024-12-25 12:06 | PCM.PRE.AN2 ---
ASA Classification* ASA Classification ASA Classification: 2 Assessment & Plan Anesthesia* Anesthesia Assessment Anesthesia Assessment: Discussed sedation and/or anesthesia options, risks, benefits, and alternatives with patient/parents/legal guardian/POA. Questions invited. The patient/parents/legal guardian/POA seems to understand and agrees to proceed with anesthesia plan. Reviewed the physical assessment, medical history, allergy history and patient home medications list prior to surgery/procedure/anesthetic and documented any changes. Performed airway and anesthesia risk assessments. Anesthesia Type Anesthesia Type: MAC Anesthesia Focused Assessment* Airway Assessment Mouth opens: >3 cm Mallampati Score: II Labs Anesthesia Preop lab: CBC WBC, (4.4-11.0) 8.4 K/mm3 12/05/24, 08:43 RBC, (4.2-5.4) 4.23 M/mm3 12/05/24, 08:43 Hgb, (12.0-15.0) 12.3 g/dL 12/05/24, 08:43 Hct, (37-47) 37.7 % 12/05/24, 08:43 Plt Count, (150-450) 345 K/mm3 12/05/24, 08:43 CHEMISTRY TSH, (0.300-4.200) 2.620 uIU/mL 12/05/24, 08:43 COAG Pre-Assessment Diagnosis/Proposed Procedure Planned Operative Procedure(s): HYSTEROSCOPY D&C POLYPECTOMY POSS GABY ABLATION Anesthesia History Anesthesia History - investment accountant: Anesthesia History - investment accountant Hx Hospitalization No 12/18/24 12:57 Any Problems With Anesthesia No 12/18/24 12:57 Cholinesterase deficiency No 12/18/24 12:57 You/Your Family Experience No 12/18/24 12:57 fever (hyperthermia) with Relationship Recent Exposure to Contagious No 07/10/24 16:48 Disease Does patient have nerve No 12/18/24 12:57 stimulator Patient instructed to have device shut off --Does patient have Pacemaker or ICD? When Was Last Pacemaker Check QUESTION #4 FULL TEXT: You/Your Family Experience fever (hyperthermia) with Anesthesia Last Oral Intake Last Oral intake: Last Oral Intake NPO since Meds taken in AM with sips of water? Meds patient instructed to take am of surgery PONV PONV - investment accountant: PONV - investment accountant Female Yes 12/18/24 12:57 HX of Motion Sickness Yes 12/18/24 12:57 HX of N/V After Surgery No 12/18/24 12:57 Non-Smoker Yes 12/18/24 12:57 Duration of Surgery greater No 12/18/24 12:57 than 60 minutes Number of Risk Factors 3 12/18/24 12:57 PONV Score Moderate Risk 12/18/24 12:57 Height & Weight Height & Weight: Anesthesia: Height & Weight Height 5 ft 2 in 12/06/24 09:05 Respiratory Assessment Respiratory Assessment - investment accountant: Respiratory Tract Infection Hx - investment accountant Hx Respiratory Tract Infection No 12/18/24 12:57 STOP Sleep Apnea STOP Sleep Apnea - investment accountant: STOP Sleep Apnea - investment accountant Hx Hypertension No 12/18/24 12:57 Hx Sleep Apnea No 12/18/24 12:57 CPAP BIPAP Do you snore loudly (louder No 12/18/24 12:57 than talking or can be heard Do you often feel tired/ Yes 12/18/24 12:57 fatigued/ sleepy during daytime? Has anyone observed you stop No 12/18/24 12:57 breathing during sleep? STOP Results Negative 12/18/24 12:57 QUESTION #5 FULL TEXT : Do you snore loudly (louder than talking or can be heard through closed doors)? Tobacco Use History Tobacco Use History - investment accountant: Tobacco Use History - investment accountant Tobacco Use Smoking Status Never smoker 12/18/24 12:57 Hx Tobacco Use No 12/18/24 12:57 Years Smoking Packs Smoked per Day Smoking Cessation Date was within the last 15 years Hx Smoking Cessation Date Hx Smoking Cessation Counseling Hematologic Medial History Hematologic Hx - investment accountant: Hematologic Medical Hx - automatic data processing planner Hx of Blood Transfusion No 12/18/24 12:57 Hx of Transfusion in last 3 No 12/18/24 12:57 Months Date of Last Transfusion (if within last 3 months) Ever experience any problems No 12/18/24 12:57 with transfusion(s)? Specify any problems Hx of Preganancy in last 3 No 12/18/24 12:57 Months Nurse Filling Out Transfusion DSCHRIBER 12/18/24 12:57 & Questions: Date: 12/18/24 12/18/24 12:57 Time: 12:58 12/18/24 12:57 Patient unable to answer at this time (ie. confused, unrespo /Reproduction History /Reproductive History - investment accountant: /Reproductive Hx- investment accountant Hx Now No 12/18/24 12:57 Gestational Age (in weeks): EDC: Hx Hx Para Hx Section SAB No 12/18/24 12:57 PFS Medical History Arthritis Fatty liver Back pain Injury of head and neck Shortness of breath on exertion History of edema Wears contact lenses Anxiety Depression Alcohol use High cholesterol Restless legs Migraine headache Non-smoker History of broken nose Home Medications ?Medication ?Instructions ?Recorded ?Last Taken ?Type escitalopram oxalate 5 mg tablet 20 mg PO DAILY 03/09/22 Unknown History (Lexapro) cetirizine 10 mg tablet (Zyrtec) 10 mg PO DAILY 10/28/22 Unknown History ergocalciferol (vitamin D2) 1,250 1,250 mcg PO TUTH 11/14/23 Unknown History mcg (50,000 unit) capsule lactobacillus combination no.4 3 3,000 mmu cells PO DAILY 11/14/23 Unknown History billion cell capsule (Probiotic) mecobalamin (vitamin B12) 1,000 1,000 mcg PO DAILY 11/14/23 Unknown History mcg lozenges rosuvastatin 10 mg tablet 10 mg PO QHS 11/14/23 Unknown History aripiprazole 2 mg tablet (Abilify) 2 mg PO QHS 12/06/24 Unknown History Allergy/AdvReac Type Severity Reaction Status Date / Time amoxicillin (From Augmentin) Allergy Hives Verified 12/18/24 12:55 clavulanic acid (From Allergy Hives Verified 12/18/24 12:55 Augmentin) Family History Sister Breast cancer, Onset Age: 42 Mother CAD (coronary artery disease) COPD (chronic obstructive pulmonary disease) Hypertension Blood clot in leg Grandmother CAD (coronary artery disease) Heart disease Myocardial infarction Surgical History Hx of colonoscopy Hx of wisdom tooth extraction Social History adopted: No household members: spouse current occupational status: employed current occupation: [employer] current occupational exposures/hazards: No sexually active: Yes Smoking Status: Never smoker alcohol intake: current substance use type: does not use seatbelt use: always do you feel safe at home: Yes additional social history: [employer] - outside sale 2 step sons - Mike Review of Systems (Anesthesia) ROS Narrative System reviewed and no additional complaints, except as documented.
[2024-12-25 12:15] LABS: Internal QC Validated? YES +Cl - CLEAR BKGD; Pregnancy, Urine Negative Negative; Record Kit Lot#,Urine Preg 980607
[2024-12-25] MEDS: Lactated Ringers 1,000 ML 15 ML IV (12:34)
--- NOTE | 2024-12-25 13:40 | EMB_PTH ---
PATIENT: JOHNSON RODRIGUEZ LOC: [facility] [place] U#:[id number] AGE/SX: 48/F ROOM: RE12/25/[address]: Dr. Mary Anne Bravo MD : 1975 BED: DIS: 12/25/2024 SPEC #: [id number] RECD: 12/25/24 15:29 STATUS: KOKI RECalvin #: [id number] MARGARETTE: 12/25/24 13:[address]: Mary Anne Bravo DEPT: SURGICAL PATHOLOGY RECD BY: Alexander Rai ENTERED: 12/25/24 15:31 SP TYPE: ENDOM BX/C ROLANDHR DR: Dr. Juana Dubon, DO Tissues: A - Endometrium, NOS Procedures: Surgery Specimen Level IV HEADER OPERATION: Hysteroscopy, D&C, polypectomy PRE-OP DIAGNOSIS: Abnormal uterine bleeding TISSUE SUBMITTED: A- Endometrial curettings and polyp MICROSCOPIC DIAGNOSIS A. Endometrium, curettage and polypectomy: * Fragments of endometrial polyp(s) and superficial myometrium. * No hyperplasia or malignant change observed in these sections. MICROSCOPIC DESCRIPTION Slides are reviewed. GROSS DESCRIPTION A. Received in formalin labeled with the patient's name and date of . Designated as endometrial curettings and polyps is a 4.3 x 1.3 x 0.4 cm aggregate of morel-pink tissue fragments, mucoid material and clotted blood. Entirely submitted in 1 cassette. ME 12/25/2024PT:[id number]
[2024-12-25] MEDS: Midazolam 2 MG/2 ML Syringe IV (14:19)
[2024-12-25] MEDS: Lidocaine 1% (5 ml sdv) 5 ML Vial IV (14:25)
[2024-12-25] MEDS: Lidocaine 1% (20 ml mdv) 20 ML Vial (14:37)
[2024-12-25] MEDS: fentaNYL 100 MCG/2 ML Ampul IV (14:39)
[2024-12-25] MEDS: Ketorolac 30 MG/ML Syringe IV (14:53)
--- NOTE | 2024-12-25 15:05 | PCM.POST.ANE ---
Anesthesia: Postop Eval I Current Vital Signs Temperature: 97.6 F Pulse Rate: 88 Blood Pressure: 95/71 Respiratory Rate: 16 Pulse Ox: 94 Oxygen Delivery Method: Nasal Cannula Oxygen Flow Rate (L/min): 2 Assessment Airway patent: Yes Spontaneous unlabored respirations: Yes Mental status: Awake and Calm nausea: No Vomiting: No Anesthesia Complication: No Fluid Hydration Crystalloid volume administer (ml): 800 Total IV fluid infused: 800 Progress Note Anesthesia document: Postop Eval 1 completed: Yes
--- NOTE | 2024-12-25 15:15 | POSTOPAN2_ITS ---
Anesthesia Postop Eval I Sum Postop Eval Completion status Anesthesia document: Postop Eval 1 completed: Yes Anesthesia Postop Eval I Summary Anesthesia Postop Eval I Summary: Anesthesia Postop Eval I: Assessment Summary Airway patent Yes 12/25/24 15:06 TRANSMISSION SYSTEM OPERATOR.SHOF Spontaneous unlabored Yes 12/25/24 15:06 TRANSMISSION SYSTEM OPERATOR.SHOF respirations Mental status Awake,Calm 12/25/24 15:06 TRANSMISSION SYSTEM OPERATOR.SHOF nausea No 12/25/24 15:06 TRANSMISSION SYSTEM OPERATOR.SHOF Vomiting No 12/25/24 15:06 TRANSMISSION SYSTEM OPERATOR.SHOF Anesthesia Postop Eval I: Fluid Summary Crystalloid volume administer 800 12/25/24 15:06 TRANSMISSION SYSTEM OPERATOR.SHOF (ml) Colloids volume administered ( ml) Blood Product volume administered (ml) Total IV fluid infused 800 12/25/24 15:06 TRANSMISSION SYSTEM OPERATOR.SHOF Anesthesia Postop Eval I: Summary Notes Anesthesia Complication No 12/25/24 15:06 TRANSMISSION SYSTEM OPERATOR.SHOF Anesthesia Complication Comment: Post-operative progress note Anesthesia: Postop Eval II Evaluation Mental status: Awake Pain Level: 0 nausea: No Vomiting: No
--- NOTE | 2024-12-25 15:15 | PCM.POSTANE2 ---
Anesthesia Postop Eval I Sum Postop Eval Completion status Anesthesia document: Postop Eval 1 completed: Yes Anesthesia Postop Eval I Summary Anesthesia Postop Eval I Summary: Anesthesia Postop Eval I: Assessment Summary Airway patent Yes 12/25/24 15:06 [email or web address] Spontaneous unlabored Yes 12/25/24 15:06 AUT[employer] [email or web address] respirations Mental status Awake,Calm 12/25/24 15:06 [email or web address] [email or web address] nausea No 12/25/24 15:06 AUTOCAD [email or web address] Vomiting No 12/25/24 15:06 [email or web address] [email or web address] Anesthesia Postop Eval I: Fluid Summary Crystalloid volume administer 800 12/25/24 15:06 [email or web address] [email or web address] (ml) Colloids volume administered ( ml) Blood Product volume administered (ml) Total IV fluid infused 800 12/25/24 15:06 [email or web address] [email or web address] Anesthesia Postop Eval I: Summary Notes Anesthesia Complication No 12/25/24 15:06 [email or web address] [email or web address] Anesthesia Complication Comment: Post-operative progress note Anesthesia: Postop Eval II Evaluation Mental status: Awake Pain Level: 0 nausea: No Vomiting: No
--- NOTE | 2024-12-25 15:24 | OP.PCM_ITS ---
Multi Select Codes Urinary/Genital Urinary/Genital CPT Codes: 62925 Jayla/Novasure and 70766 Hysteroscopy, Polypectomy, Symphion Operative Report (Standard) Operative Information Date of Procedure: 12/26/24 Pre-Operative Diagnosis: AUB Post-Operative Diagnosis: same plus polyps Surgery/Procedure Performed: d and c hysteroscopy polypectomy with symphion and jayal ablation blast furnace blower: No Type of Anesthesia: IV Sedation RN Documented Start/Stop Times: Operation Date: 12/25/24 13:40 Case Time Into Pre-Op 12/25/24 12:08 Out of Pre-Op 12/25/24 14:13 Anesthesia Start 12/25/24 14:19 Into Room 12/25/24 14:19 Procedure Start 12/25/24 14:35 Procedure End 12/25/24 14:51 Anesthesia End 12/25/24 14:55 Out of Room 12/25/24 14:55 Into Recovery 12/25/24 15:00 Out of Recovery 12/25/24 15:16 Into Phase II Recovery 12/25/24 15:19 Out of Phase II 12/25/24 15:50 Procedure Start Time: 14:35 Procedure Stop Time: 14:51 Select all DRAINS/GRAFTS/IMPLANTS that apply: None Estimated Blood Loss: 25 Specimen collected: Yes Description of specimen(s) removed: emc and polyps Description of surgery: Patient was prepped and draped in a normal sterile fashion under MAC anesthesia. A weighted speculum was placed in the vagina and the anterior lip of the cervix was grasped with a single-tooth tenaculum. A paracervical block was placed with 1% lidocaine. Cervix was progressively dilated to allow passage of a 5 mm hysteroscope. The lining was fully visualized and noted to have multiple polyps posteriorly . Uterine sounded to 8 cm. Using the symphion device, the polyps were progressively removed without complications. Direct visual curettage was performed using the device , and all specimens were sent to pathology. The Jayla device was opened and the cavity length was found to be 4 cm. Device was inserted into the uterus and balloon inflated and device deployed. Integrity of the cavity was confirmed and a 2 minute treatment cycle was completed without complication. All instruments were removed from the vagina and excellent hemostasis was noted. Patient was awoken and taken to recovery in stable condition. Surgical Findings: polyps Complications Complications: No
--- NOTE | 2024-12-25 15:24 | DCINST_ITS ---
Discharge Instructions DC O2, CPAP, BIPAP needs Home O2 Discharge instructions: No Dressing / Incision Discharge Activity: Return to Normal Activity, May Shower and May Take a Tub Bath (after 1 week) May resume sexual activity in: 1-2 weeks Weight Bearing Status: Weight bearing as tolerated Lifting Restrictions: none Dressing / Incision Call your doctor if you observe: Fever of 101 or Higher, Using more than 1 pad per hour, Shortness of breath and Uncontrolled pain Follow Up Care Please Follow Up With: Mary Anne Bravo MD When: Call [phone] to schedule appointment. Test Results: Test results from this visit will be discussed in further detail at your follow- up appointment, if applicable. Discharge Plan Admission Attending Provider: Mary Anne Bravo Primary Care Provider: Juana Dubon Instructions Print Language: Georgian Discharge Orders/Prescriptions Prescriptions: No Action escitalopram oxalate [Lexapro] 5 mg tablet 20 mg PO DAILY cetirizine [Zyrtec] 10 mg tablet 10 mg PO DAILY ergocalciferol (vitamin D2) 1,250 mcg (50,000 unit) capsule 1,250 mcg PO TUTH rosuvastatin 10 mg tablet 10 mg PO QHS Probiotic 3 billion cell capsule 3,000 mmu cells PO DAILY Rx Instructions: administer with a meal mecobalamin (vitamin B12) 1,000 mcg lozenge 1,000 mcg PO DAILY Rx Instructions: allow to dissolve in mouth OR may chew lightly before swallowing aripiprazole [Abilify] 2 mg tablet 2 mg PO QHS Referrals / Follow Up: Juana Dubon DO [Primary Care Provider, Medical] Disposition Disposition (needs filled in before D/C Order can be placed): Home, Self Care
== END 2024-12-25 15:53 | disposition home or self-care (01) ==
LOC: SDC 11:53 → AC 11:55
PROVIDERS: PCP Family Medicine; Referring Provider Obstetrics & Gynecology; Visit Provider Obstetrics & Gynecology
PROC: 0UB98ZZ Excision of Uterus, Via Natural or Artificial Opening Endoscopic (ICD-10-PCS; CPT 58558; principal; 2024-12-25 13:25)
DX: N93.9 Abnormal uterine and vaginal bleeding, unspecified (principal); E78.00 Pure hypercholesterolemia, unspecified
CPT/HCPCS: 58563; 00952; 81025; 86850; 86900; 86901; 88305

== ENCOUNTER 2025-02-11 10:10 | Emergency (ER) | payer BC, SELFPAY ==
[2025-02-11 10:10] VITALS: BP 139/88; PULSE 111; RESP 18; TEMP 37; O2SAT 100; BMI 36.6
--- NOTE | 2025-02-11 10:28 | EX.ED.DYSGE1 ---
HPI History of Present Illness Chief Complaint: Other, Pain/Inj Informant: patient Onset/Context/Timing Onset: Today Context: Sudden Onset Timing: Continuous Quality: Aching, burning, pinching Location: Left neck Worsened by: Movements, turning her head Relieved by: Heat Narrative Narrative: Patient presents with left-sided neck pain that began this morning when she woke up. Patient states her pain began rather suddenly this morning. Patient states it has been constant. Patient describes it as aching and burning. Patient states it also feels like it is pinching at times. Patient states it is over the left side of her neck. Patient states it is worse with certain movements such as turning her head. Patient states she has tried ice and heat. Patient states heat seems to help it somewhat. Patient denies any trauma or injury. Patient denies any paresthesias or weakness. [facility] Medical History Arthritis Fatty liver Back pain Injury of head and neck Shortness of breath on exertion History of edema Wears contact lenses Anxiety Depression Alcohol use High cholesterol Restless legs Migraine headache Non-smoker History of broken nose Home Medications ?Medication ?Instructions ?Recorded ?Last Taken ?Type escitalopram oxalate 5 mg tablet 20 mg PO DAILY 03/09/22 12/24/24 History (Lexapro) cetirizine 10 mg tablet (Zyrtec) 10 mg PO DAILY 10/28/22 12/24/24 History ergocalciferol (vitamin D2) 1,250 1,250 mcg PO TUTH 11/14/23 12/20/24 History mcg (50,000 unit) capsule lactobacillus combination no.4 3 3,000 mmu cells PO DAILY 11/14/23 Unknown History billion cell capsule (Probiotic) mecobalamin (vitamin B12) 1,000 1,000 mcg PO DAILY 11/14/23 12/23/24 History mcg lozenges rosuvastatin 10 mg tablet 10 mg PO QHS 11/14/23 12/24/24 History aripiprazole 2 mg tablet (Abilify) 2 mg PO QHS 12/06/24 12/24/24 History cyclobenzaprine 10 mg tablet 10 mg PO TID PRN Muscle Spasm #20 02/11/25 Unknown Rx TABLETS Allergy/AdvReac Type Severity Reaction Status Date / Time amoxicillin (From Augmentin) Allergy Hives Verified 02/11/25 10:11 clavulanic acid (From Allergy Hives Verified 02/11/25 10:11 Augmentin) Family History Sister Breast cancer, Onset Age: 42 Mother CAD (coronary artery disease) COPD (chronic obstructive pulmonary disease) Hypertension Blood clot in leg Grandmother CAD (coronary artery disease) Heart disease Myocardial infarction Surgical History History of hysteroscopy Hx of colonoscopy Hx of wisdom tooth extraction Social History adopted: No household members: spouse current occupational status: employed current occupation: [employer] current occupational exposures/hazards: No sexually active: Yes Smoking Status: Never smoker alcohol intake: current substance use type: does not use seatbelt use: always do you feel safe at home: Yes additional social history: [employer] - outside sale 2 step sons - Yannick and Jhon MAR ROS ED Constitutional Constitutional ED: Denies chills or fever(s) Eyes Eyes: Denies blurry vision or change in vision ENT ENT ED: Denies rhinorrhea or sore throat Cardiovascular Cardiovascular: Denies chest pain or palpitations Respiratory/Chest Respiratory/Chest: Denies cough or dyspnea Gastrointestinal Gastrointestinal: Denies nausea or vomiting Genitourinary Genitourinary ED: Denies dysuria or hematuria Musculoskeletal Musculoskeletal: Reports neck pain; Denies back pain Integumentary Denies abscess or rash Neurologic Neurologic: Denies headache(s) or weakness Allergic/Immunologic Allergic/Immunologic ED: Denies mouth swelling or urticaria EXAM Physical Exam Const Vital Signs: 02/11/25 10:10 Temperature 98.6 F Temperature Source Oral Pulse Rate 111 H Respiratory Rate 18 Blood Pressure 139/88 H Blood Pressure Mean 105 Pulse Ox 100 Oxygen Delivery Method Room Air Positive well nourished and well developed Constitutional Narrative: BMI is 36.6. General Appearance ED: well developed and NAD HEENT Reports moist mucous membranes Neck supple and no JVD Neck Narrative: There is tenderness over the left cervical paraspinal muscles. There is no midline tenderness. There is no bony crepitance or step-off. Range of motion was slightly limited and left rotation and left sidebending secondary to pain. There is no edema or ecchymosis noted. Resp normal respiratory effort and clear to auscultation bilaterally Cardio regular rate and regular rhythm GI non-tender and non-distended Palpation: soft Neuro oriented x3, CN's II-XII intact bilaterally and no sensory deficits noted Sensorium / Orientation: alert Motor Exam: strength 5/5 throughout Psych mental status grossly normal MDM MDM MDM Narrative Medical decision making narrative: Patient was advised that this is most likely a muscular strain/spasm. Patient was instructed to continue using moist heat to the area. Patient was given a prescription for Flexeril. Patient was instructed to follow-up with her primary care physician in 5 to 7 days. Patient understood and was agreeable with the plan. All questions were answered. Discharge Plan Triage Chief Complaint: Other, Pain/Inj ED Provider: Helder Lewis Dx/Rx/DC Orders Clinical Impression: Acute cervical myofascial strain, Obesity (BMI 30-39.9) Instructions: ED Neck Sprain or Strain Prescriptions: New cyclobenzaprine 10 mg tablet 10 mg PO TID PRN (Reason: Muscle Spasm) Qty: 20 0RF No Action escitalopram oxalate [Lexapro] 5 mg tablet 20 mg PO DAILY cetirizine [Zyrtec] 10 mg tablet 10 mg PO DAILY ergocalciferol (vitamin D2) 1,250 mcg (50,000 unit) capsule 1,250 mcg PO TUTH rosuvastatin 10 mg tablet 10 mg PO QHS Probiotic 3 billion cell capsule 3,000 mmu cells PO DAILY Rx Instructions: administer with a meal mecobalamin (vitamin B12) 1,000 mcg lozenge 1,000 mcg PO DAILY Rx Instructions: allow to dissolve in mouth OR may chew lightly before swallowing aripiprazole [Abilify] 2 mg tablet 2 mg PO QHS Primary Care Provider: Juana Dubon Referrals: Juana Dubon DO [Primary Care Provider, Medical] - 5-7 Days Activity Restrictions/Additional Instructions: Your neck pain is likely from a muscle strain or spasm. The cyclobenzaprine (Flexeril) will help relax the muscles. It may make you drowsy. Do not drive after taking this. Continue using moist heat to your neck. Print Language: Azerbaijani Disposition Disposition: Home, Self Care
[2025-02-11 11:24] VITALS: BP 129/99; PULSE 89; RESP 16; TEMP 37.1; O2SAT 99
== END 2025-02-11 11:30 | disposition home or self-care (01) ==
LOC: ED 11:14
PROVIDERS: Emergency Provider Emergency Medicine; PCP Family Medicine; Visit Provider Emergency Medicine
DX: S16.1XXA Strain of muscle, fascia and tendon at neck level, initial encounter (principal); X58.XXXA Exposure to other specified factors, initial encounter; E66.9 Obesity, unspecified; Z68.36 Body mass index [BMI] 36.0-36.9, adult
CPT/HCPCS: 99282